=== PATIENT | female | born 1930 | race Caucasian/White ===

== ENCOUNTER 2016-04-04 15:17 | Inpatient (IN) | payer MEDICARE ==
[~2016-04-04] VITALS: Ht 152.4 cm; Wt 48.0 kg
[~2016-04-04 15:17] MED LIST: /ESCI10TA PO; ASPI81TA7 PO; BUME0.5T PO; BUME1TAB13 PO; CIPR500T89 PO; DITR5TAB PO; GLYB5TAB5 PO; POTA20PO4 PO; PRED10TA2 PO; VESI5TAB PO; VITA-121 PO; VITA250L PO; XANA0.5T PO; ZOCO40TA PO
[2016-04-04 17:22] LABS: BASO # 0.1 K/mm3 (0.0-0.2); BASO % 0.9 % (0.0-1.0); EOS # 0.3 K/mm3 (0.0-0.50); LARGE UNSTAINED CELL # 0.1 K/mm3 (0.0-0.4); LARGE UNSTAINED CELL % 1.7 % (0.0-4.0); LYMPH # 0.6 K/mm3 (1.5-4.5); MEAN CORPUSCULAR HEMOGLOBIN 32.7 pg (27.0-33.0); MEAN CORPUSCULAR HGB CONC 34.2 g/dl (32.0-36.5); MEAN CORPUSCULAR VOLUME 95.5 fl (80.0-96.0); MONO # 0.4 K/mm3 (0.0-0.8); MONO % 6.4 % (0.0-5.0); NEUTROPHILS # 4.8 K/mm3 (1.8-7.7); NEUTROPHILS % 75.9 % (36.0-66.0); PLATELET COUNT, AUTOMATED 276 k/mm3 (150-450); RED CELL DISTRIBUTION WIDTH 13.7 % (11.5-14.5); WHITE BLOOD COUNT 6.3 K/mm3 (4.0-10.0)
[2016-04-04 17:35] LABS: ALBUMIN 3.2 GM/DL (3.2-5.2); ALBUMIN/GLOBULIN RATIO 1.14 (1.00-1.93); ALKALINE PHOSPHATASE 164 U/L (45-117); ALT/SGPT 37 U/L (12-78); ANION GAP 8 MEQ/L (8-16); AST/SGOT 24 U/L (15-37); BILIRUBIN,TOTAL 0.3 MG/DL (0.2-1.0); BLOOD UREA NITROGEN 18 MG/DL (7-18); CALCIUM LEVEL 9.3 MG/DL (8.8-10.2); CARBON DIOXIDE LEVEL 29 MEQ/L (21-32); CHLORIDE LEVEL 108 MEQ/L (98-107); CREATININE FOR GFR 0.93 MG/DL (0.55-1.02); GLOMERULAR FILTRATION RATE > 60.0 (>32); GLUCOSE, FASTING 152 MG/DL (83-110); POTASSIUM SERUM 4.2 MEQ/L (3.5-5.1); SODIUM LEVEL 145 MEQ/L (136-145)
[2016-04-04 17:40] LABS: BILIRUBIN,DIRECT 0.1 MG/DL (0.0-0.2)
--- NOTE | 2016-04-04 18:13 | REP ---
CT brain without contrast 04/04/2016 Indication: Mental status with intermittent right-sided deficits. Comparison: CT brain 10/14/2014 Findings: There is moderate generalized cerebral volume loss. Small to moderate areas of periventricular subcortical white matter hypodensities are consistent with chronic small vessel ischemic disease. There is no intracranial hemorrhage or extra-axial fluid collection. As previously noted there is a calcified right frontal convexity meningioma of approximately 2.5 cm maximal transverse dimension and 1.7 cm AP dimension not significantly changed in size yet with some increased thickening of the inner table of the right frontal skull. Visualized portions of paranasal sinuses and mastoid sinuses are clear. Impression 1. No acute intracranial pathology or hemorrhage 2. Moderate generalized cerebral volume loss with chronic small vessel ischemic disease 3. No significant change within the size of the right frontal convexity meningioma. However there does appear to be some mild increased cortical thickening within the inner table of the right frontal skull. Signed by Aixa Nieves MD 04/04/2016 06:05 P
--- NOTE | 2016-04-04 19:44 | REP ---
AP portable sitting chest radiograph: Indication: Altered mental status, weakness. Comparison: PA and lateral chest 11/15/2013 performed at [facility]. Findings: Cardiac silhouette is mildly enlarged with left ventricular prominence. Dense atherosclerotic changes are noted in the aortic arch and descending thoracic aorta. Small amount of bibasilar atelectatic changes are noted as well as pulmonary venous hypertension. Impression: Mild cardiomegaly with left ventricular enlargement, stable. Dense atherosclerotic changes in the thoracic aorta. Pulmonary venous hypertension and/or fibrotic scarring. Signed by Aixa Nieves MD 04/07/2016 10:45 A
[2016-04-04] MEDS ORDERED: MIRA3350 PO (20:13)
[2016-04-04] MEDS ORDERED: GABA-279 PO (20:13)
[2016-04-04] MEDS ORDERED: LEXA5TAB13 PO (20:13)
[2016-04-04] MEDS ORDERED: ASPI1TAB PO (20:13)
[2016-04-04] MEDS ORDERED: DOCU100C PO (20:13)
[2016-04-04] MEDS ORDERED: CALCTAB68 PO (20:13)
[2016-04-04] MEDS ORDERED: MELA3TAB PO (20:13)
[2016-04-04] MEDS ORDERED: FLON1SPR (20:13)
[2016-04-04] MEDS ORDERED: SALI0.653 (20:16)
[2016-04-04] MEDS ORDERED: MIRT15TA3 PO (20:16)
[2016-04-04] MEDS ORDERED: MUPI2OI TOP (20:16)
[2016-04-04] MEDS ORDERED: OLAN5TAB PO (20:16)
[2016-04-04] MEDS ORDERED: LORA10TA2 PO (20:16)
[2016-04-04] MEDS ORDERED: VITMTA PO (20:18)
[2016-04-04] MEDS ORDERED: MEDI1GEL5 TOP (20:18)
[2016-04-04] MEDS ORDERED: MUPIROCIN 2% OINT 22 GM TUBE TOP PRN (20:30)
[2016-04-04] MEDS ORDERED: DOCUSATE SODIUM 100 MG CAP PO PRN (20:30)
--- NOTE | 2016-04-04 22:05 | HPE ---
DATE OF ADMISSION: 04/04/2016 PRIMARY CARE PROVIDER: Dr. Makayla Luna CHIEF COMPLAINT: Progressive weakness and confusion. HISTORY OF THE PRESENT ILLNESS: Ms. Shahid is an 86-year-old female with a history of temporal arteritis, reportedly has been off prednisone 3 months ago, who presented to the emergency department (ED) tonight with her family with complaint of progressive weakness and confusion. The patient is somewhat a poor historian and history was obtained mostly from her niece. The time frame of her prednisone cessation and onset of confusion is somewhat unclear. Per niece, the patient in the last 2 months has had worsening weakness. Previously, she was using a walker but was noticed to have preference more leaning to her right side with walking. She is now weak to the point that needs to use wheelchair. Per niece, the patient has intermittent episodes where she is able to carry on a normal conversation and able to tell the year; however, this has been fluctuating in the last 2 months. Because of concern that her symptoms were secondary to steroids, her primary care provider (PCP) had stopped her prednisone 3 months earlier. No reported headaches, nausea, fevers, chills, new rashes. Mirtazapine was started approximately a month ago to help increase her appetite. No changes to other medications. In the ED, her systolic blood pressure initially was 95 but did improve to systolic 154. 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 Temporal arteritis. Diverticulitis. Dysphagia, on honey-thickened liquids. Frontal hemangioma. Hemorrhoids. Grade 1 diastolic heart failure, ejection fraction (EF) was 60-65% from 2012 echo. 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 PAST SURGICAL HISTORY: Hysterectomy. Cataract surgery, bilateral. Colonoscopy. ALLERGIES: AMOXICILLIN - rash. CIPRO - rash. PENICILLIN - rash. BEE STINGS. HOME MEDICATIONS: - aspirin 81 mg by mouth daily - calcium 600 mg one tablet by mouth daily - Colace 100 mg by mouth twice a day - Lexapro 5 mg by mouth daily - Flonase two sprays daily - gabapentin 100 mg nightly; the patient takes two tablets nightly if increased pain - loratadine 10 mg by mouth daily - Medihoney Wound topical twice a day to sores - melatonin 3 mg nightly - mirtazapine 15 mg nightly - multivitamin - mupirocin 2% ointment as needed to rash - olanzapine 5 mg nightly - MiraLAX 17 grams by mouth daily - nasal saline spray nightly SOCIAL HISTORY: The patient is an ex-smoker, used to smoke for 30 pack years. No alcohol or drug use. Currently lives at home with her niece and her niece's . No pets. 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 Son, Esthela Shahid, is health care proxy, phone number [phone] or . FAMILY HISTORY: Noncontributory due to advanced age. REVIEW OF SYSTEMS: CONSTITUTIONAL: Positive for 11 pound weight loss due to poor appetite. No fever , chills or night sweats. HEENT: Denies headaches, lightheadedness, dizziness, difficulty with speech and swallow. Positive for right eye blindness as mentioned above. CARDIOVASCULAR: Denies chest pain, paroxysmal nocturnal dyspnea, pillow orthopnea, lower extremity edema. PULMONARY: Denies shortness of breath, productive cough, hemoptysis. GASTROINTESTINAL: Denies hematochezia, melena, or hematemesis, nausea, vomiting, diarrhea, constipation. GENITOURINARY: No dysuria, frequency or hematuria. MUSCULOSKELETAL: No bone, muscle, joint pain. NEUROLOGICAL: Positive for right-sided weakness and confusion as above. ENDOCRINE: Previously had steroid induced diabetes. No thyroid disease. LYMPHATICS: No lumps, bumps, or swelling anywhere in neck, axilla, or groin. HEMATOLOGY: No abnormal bleeding or bruising. PSYCHIATRIC: Positive for history of depression and decreased appetite. PHYSICAL EXAMINATION: VITAL SIGNS: Blood pressure initially 95 systolic but increased to 154/70, heart rate 62, respiratory rate 18, temperature 96.3, pulse oximetry 97% on room air. Body mass index (BMI) 25. GENERAL: Patient is lying in bed, approximately 45 degree angle, comfortable, in no acute distress, thin, chronically ill appearing. Niece and son at bedside. She is alert, awake, oriented to person, place but thinks that the year is 2005 but knows she is 86 years old. HEENT: Normocephalic, atraumatic, moist oral mucosa, upper denture in place. Extraocular movements intact. Pupils equal and reactive to light. No facial weakness. NECK: Supple. Trachea midline. CHEST: Symmetric chest rise, no accessory muscle use. Breath sounds are clear to auscultation bilaterally. HEART: Regular rate and rhythm, S1, S2 present. ABDOMEN: Soft, mildly tender to palpation left lower quadrant. No guarding, no rebound, no peritoneal sign. EXTREMITIES: No pedal edema. Pedal pulses present bilaterally. MUSCULOSKELETAL: She has extreme kyphosis. Back with dressing in place with tearing of skin. This is currently being dressed with Medihoney. Her sacral region is also being dressed due to skin tear secondary to chronic steroid use. NEUROLOGIC: Mentation as above. Sensory is intact. Strength is 4 out of 5 in all extremities. Delayed [id number]. PSYCHIATRIC: Pleasant, cooperative. LABORATORY DATA: WBC is 6.3, hemoglobin 13, hematocrit 37.9, platelets 276, neutrophils 75.9, ESR normal. Sodium 145, potassium 4.2, chloride 109, carbon dioxide 29, BUN 18, creatinine 0.92, glucose 152, calcium 9.3, total bilirubin 0.3, direct bilirubin 0.1, AST 24, ALT 37, alkaline phosphatase 164, CK 32, troponin negative, TSH 1.82, CRP 0.67, total protein 6, albumin 3.2. Blood culture is pending. Urine culture is pending. CT head reports no acute intracranial pathology or hemorrhage. No significant change in the size of right frontal convexity meningioma. There appears to be some increased cortical thickening within the inner table of the right frontal skull. Moderate generalized cerebral volume loss with chronic ischemic disease. Chest x-ray reports mild cardiomegaly with left ventricular enlargement, dense atherosclerotic changes in thoracic aorta. Pulmonary venous hypertension and/or fibrotic scarring IMPRESSION AND PLAN: Ms. Shahid is an 86-year-old with past medical history of temporal arteritis, brought in for progressive weakness and confusion. 1. Weakness and intermittent confusion. Etiology unclear. Possible causes include prednisone induced, transient ischemic attack (TIA), cerebrovascular accident, dementia, infection or other. While there is reported history of right sided weakness, did not appreciate this during examination tonight. The patient will be admitted to telemetry for close monitoring. The patient could not have MRI performed due to her severe kyphotic back. Will order repeat CT in the morning. Check echo, carotid ultrasound. Neurology consult. Aspiration precautions. Neurologic checks. . 2. History of temporal arteritis. Previously on prednisone for more than 4 years. Dose was reportedly tapered off 3 months ago due to concerning that it was contributing to her confusion. 3. Prednisone induced diabetes. This is reportedly resolved since she has been off prednisone. 4. Chronic back pain. Continue home dose of gabapentin; however, monitor her mental status while she is on medication. 5. History of diastolic heart failure. Compensated. Reportedly has not been on diuretics for a long time. 6. Depression. Continue home dose Lexapro, Zyprexa. Mirtazapine 50 mg by mouth daily. 7. Deep vein thrombosis (DVT) prophylaxis. Sequential compression devices (SCDs) , thromboembolism deterrents (TEDs) and heparin. DISPOSITION: Due to patient's acute condition, we expect her stay to be greater than two midnights. My preceptor for this patient encounter was Dr. Nelson. The preceptor was physically present in the building during the encounter and was fully available. As needed, all aspects of the patient interview, examination, medical decision making process, and medical care plan development were reviewed and approved by the preceptor. The preceptor is aware and concurs with the plan as stated in the body of this note and will attest to such by his/her cosignature. MAGALI
--- NOTE | 2016-04-04 22:37 | EDDOCDS ---
Physician Documentation [facility] Name: Alisha Shahid Age: 86 yrs Sex: Female : 1930 Arrival Date: 04/04/2016 Time: 15:17 Bed 5 Private MD: Makayla Luna E Disposition: 04/04 19:46 Critical Care: Critical care not applicable. hortensia Disposition: 04/04/16 19:46 Hospitalization ordered by Hector Nelson for Observation. Preliminary diagnosis is Other transient cerebral ischemic attacks and related syndromes - possible, needs further evaluation. - Bed requested for PCU. - Status is Observation. js15 - Condition is Stable. - Problem is an ongoing problem. - Symptoms are unchanged. Historical: - Allergies: Amoxicillin (Rash); Cipro PO (Rash); PENICILLINS (Hives, Rash); Bees; - Home Meds: 1. aspirin 81 mg Oral tab 1 tab once daily 2. Calcium + Vitamin D 600 mg calcium- 200 unit Oral tab 2 tab daily 3. Miralax 17 gram/dose Oral powd once daily 4. fluticasone 50 mcg/actuation nasal spsn 2 sprays once daily 5. Lexapro 5 mg Oral tab 1 tab once daily 6. Doc-Q-Lace 100 mg oral cap 1 cap 2 times per day 7. melatonin 3 mg Oral tab nightly 8. gabapentin 100 mg Oral cap daily 9. Zyprexa 5 mg Oral tab 1 tab nightly 10. mirtazapine 15 mg Oral TbDL 1 tab once daily - PMHx: CHF; Diabetes - NIDDM: controlled; temporal arteritis; - PSHx: Hysterectomy; Cataract Surgery- Bilateral; - Social history: Smoking status: Patient states former smoker of tobacco. No barriers to communication noted, The patient speaks fluent Swiss. - Family history: Not pertinent. - : The pt / caregiver states he / she is not on anticoagulants. Home medication list is obtained from the patient. - Exposure Risk Screening:: None identified. Vital Signs: 15:18 BP 95 / 54; Pulse 77; Resp 18 S; Temp 96.3; Pulse Ox 97% on R/A; Weight 58.97 kg / dd6 130.01 lbs (R); Height 5 ft. 0 in. (152.40 cm) (R); 16:00 Pulse 64 MON; Pulse Ox 95% ; srm 16:00 BP 118 / 58 (auto/); srm 16:10 BP 115 / 52 (auto/); srm 16:10 Pulse 58 MON; Resp 18; Pulse Ox 96% ; srm 16:40 Pulse 62 MON; Pulse Ox 93% ; srm 16:40 BP 131 / 62 (auto/); srm 17:10 Pulse 58 MON; Pulse Ox 96% ; srm 17:10 BP 162 / 70 (auto/); srm 17:53 BP 154 / 70 (auto/); srm 17:53 Pulse 62 MON; Resp 18; Pulse Ox 97% ; srm 18:40 BP 165 / 72 (auto/); js15 18:40 Pulse 50 MON; Pulse Ox 97% ; js15 19:06 Pulse 52 MON; Pulse Ox 96% ; js15 21:15 BP 130 / 65; Pulse 63; Resp 18; Temp 98.2; Pulse Ox 94% ; Pain 0/10; js15 15:18 Body Mass Index 25.39 (58.97 kg, 152.40 cm) dd6 MDM: 16:56 Mail Sorter And Delivery/Pulse Ox/q 15 min VS ordered. le 16:56 Accucheck ordered. le 16:57 IV Saline Lock ordered. le 16:57 Oxygen at 4L/Min NC or Home dosage ordered. le 16:57 Rhythm Strip to chart ordered. le 16:57 -Blood Culture (Adults Only), peripheral from different site, or from device/port/PICC le etc. if present ordered. 16:58 CBC with Diff Ordered. EDMS 16:58 Cardiac Injury Profile Ordered. EDMS 16:58 Liver Profile Ordered. EDMS 16:58 MED Profile Ordered. EDMS 16:58 Thyroid Stimulating Hormone Ordered. EDMS 16:58 Troponin Ordered. EDMS 16:58 Urinalysis Ordered. EDMS 16:58 Urine Culture Ordered. EDMS 16:58 -Blood Culture Ordered. EDMS 16:58 CT Head Without Contrast Ordered. EDMS 16:58 ECG WITH READING ER PHYS+CARDIAG ordered. EDMS 16:59 Chest, 2 View (pa\E\lat) Ordered. EDMS 17:02 Financial registration complete. zo 17:04 [facility] [place] was scanned into [employer] and attached to record. zo 17:18 -Blood Culture (Adults Only), peripheral from different site, or from device/port/PICC lbd etc. if present complete. 17:21 BLOOD CULTURES Ordered. EDMS 17:28 ESR Ordered. EDMS 17:30 C REACTIVE PROTEIN QUANTITATIV Ordered. EDMS 17:43 Fingerstick Blood Sugar Ordered. EDMS 18:22 CBC with Diff Reviewed. le 18:22 Liver Profile Reviewed. le 18:22 MED Profile Reviewed. le 18:22 Urinalysis Reviewed. le 18:22 C REACTIVE PROTEIN QUANTITATIV Reviewed. le 18:22 Fingerstick Blood Sugar Reviewed. le 18:22 Cardiac Injury Profile Reviewed. le 18:22 Thyroid Stimulating Hormone Reviewed. le 18:22 Troponin Reviewed. le 18:22 ESR Reviewed. le 18:22 CT Head Without Contrast Reviewed. le 18:29 MRI Screening Tool - Place on chart, inform RN ordered. le 18:42 MRI Screening Tool - Place on chart, inform RN complete. lbd 19:36 BED REQUEST+ADM ordered. EDMS 20:25 2 GRAM SODIUM DIET ordered. EDMS 20:25 COMPLETE BLOOD COUNT Ordered. EDMS 20:25 BASIC METABOLIC PROFILE Ordered. EDMS 20:51 Admission / Observation Status ordered. EDMS 20:58 Duplex,carotid (complete) Ordered. EDMS 20:59 ECHOCARD,DOPPLER/COLOR FLOW ordered. EDMS 20:59 CT Head without contrast Ordered. EDMS Point of Care Testing: Blood Glucose: 17:31 Blood Glucose: 140 mg/dL; srm Ranges: Signatures: Dispatcher [employer] Shavon Archibald, Chemotherapist Unit lbd Iveth Pedroza RN MORENO srm Marissa, Rj, Chemotherapist Unit ml3 Katarzyna Klein Lisa, FOUNDER CHAIRMAN AND CHIEF CREATIVE OFFICER FOUNDER CHAIRMAN AND CHIEF CREATIVE OFFICER Blanka Carbone RN RN rs3 Savanah Marcano,RN RN js15 The chart was reviewed and I authenticate all verbal orders and agree with the evaluation and treatment provided.Corrections: (The following items were deleted from the chart) 17:31 17:28 C REACTIVE PROTEIN QUANTITATIV+LAB ordered. EDMS EDMS 19:28 18:30 MRA-Brain without contrast+MR ordered. EDMS EDMS 19:28 18:31 MRI-Brain without+MR ordered. EDMS EDMS Attachments: 17:04 [facility] [place] zo MTDD
--- NOTE | 2016-04-04 22:38 | EDDOCDS ---
Nurse's Notes [facility] Name: Alisha Shahid Age: 86 yrs Sex: Female : 1930 Arrival Date: 04/04/2016 Time: 15:17 Bed 5 Private MD: Makayla Luna E Diagnosis: Other transient cerebral ischemic attacks and related syndromes-possible, needs further evaluation Presentation: 04/04 15:23 Presenting complaint: Niece states patient is getting progressively weak,confused for a rs3 week. The last date and time the patient was known to be well was was at an unknown time on an unknown date. No acute neurological deficit is noted. Pre-hospital glucose is not applicable to this patient. Adult Sepsis Screening: The patient does not have new or worsening altered mentation. Patient's respiratory rate is less than 22. Systolic blood pressure is greater than 100. Patient has a qSOFA score of 0- Negative Sepsis Screen. Suicide/Homicide risk assessment- the patient denies having any suicidal and/or homicidal ideations and does not present with any other emotional, behavioral or mental health complaints. Status: Patient is not a enrollment services dean or dependent. Transition of care: patient was not received from another setting of care. 15:23 Acuity: STEVEN Level 3 rs3 15:23 Method Of Arrival: Wheelchair rs3 Triage Assessment: 15:27 The onset of the patients symptoms was at an unknown time. General: Appears in no rs3 apparent distress. Pain: Denies pain. Neurological: Level of Consciousness is awake, alert, Reports weakness. Historical: - Allergies: Amoxicillin (Rash); Cipro PO (Rash); PENICILLINS (Hives, Rash); Bees; - Home Meds: 1. aspirin 81 mg Oral tab 1 tab once daily 2. Calcium + Vitamin D 600 mg calcium- 200 unit Oral tab 2 tab daily 3. Miralax 17 gram/dose Oral powd once daily 4. fluticasone 50 mcg/actuation nasal spsn 2 sprays once daily 5. Lexapro 5 mg Oral tab 1 tab once daily 6. Doc-Q-Lace 100 mg oral cap 1 cap 2 times per day 7. melatonin 3 mg Oral tab nightly 8. gabapentin 100 mg Oral cap daily 9. Zyprexa 5 mg Oral tab 1 tab nightly 10. mirtazapine 15 mg Oral TbDL 1 tab once daily - PMHx: CHF; Diabetes - NIDDM: controlled; temporal arteritis; - PSHx: Hysterectomy; Cataract Surgery- Bilateral; - Social history: Smoking status: Patient states former smoker of tobacco. No barriers to communication noted, The patient speaks fluent Chinese. - Family history: Not pertinent. - : The pt / caregiver states he / she is not on anticoagulants. Home medication list is obtained from the patient. - Exposure Risk Screening:: None identified. Screenin:03 Screening information is obtained from the patient, the caregiver. Fall risk: At risk srm due to age, gait disturbance, The following interventions are performed due to a positive Fall Risk Screen: Fall Risk is added to Special Handling on the patient Summary Screen. A Fall Risk Bracelet was applied to the patient. Side Rails are placed in the up position. A Call Davis is given with instruction to call for help when getting out of bed. Fall Alert bracelet is placed on the patient. home support is adequate. 22:19 Assistance ADL's: Requires assistance with meal preparation, this assistance is js15 provided by family members, bathing, assistance is provided by family members, dressing, assistance is provided by family members, toileting, assistance is provided by family members, medication administration, assistance is provided by family members. Abuse/DV Screen: The patient / caregiver reports he/she is: not in a situation that causes fear, pain or injury. Nutritional screening: No deficits noted. 22:22 Advance Directives: Currently, there is a health care proxy, Son- Esthela Shahid. js15 Assessment: 16:02 General: Appears in no apparent distress, Behavior is appropriate for age, cooperative. srm Neurological: Level of Consciousness is awake, alert, Oriented to person, place, Speech is normal, Facial symmetry appears normal. Respiratory: Airway is patent Respiratory effort is even, unlabored, Breath sounds are clear bilaterally. GI: Abdomen is non- distended Bowel sounds present X 4 quads. Abd is soft and non tender X 4 quads. Derm: No deficits noted. 17:31 General: Appears in no apparent distress, Behavior is appropriate for age, cooperative. srm Neurological: Level of Consciousness is awake, alert, Oriented to person, place. Cardiovascular: Rhythm is sinus rhythm. Respiratory: No deficits noted. GI: No deficits noted. 19:09 General: Appears in no apparent distress, Behavior is appropriate for age, cooperative. srm Neurological: Level of Consciousness is awake, alert, Oriented to person, place, Speech is normal, Facial symmetry appears normal. Cardiovascular: No deficits noted. Respiratory: No deficits noted. GI: No deficits noted. 20:30 General: Appears in no apparent distress, Behavior is appropriate for age, cooperative. js15 Pain: Denies pain. Neurological: Level of Consciousness is awake, alert, obeys commands, Oriented to person, place. Respiratory: Airway is patent Respiratory effort is even, unlabored, Respiratory pattern is regular, symmetrical. Derm: Skin is pink, warm & dry. 21:45 Reassessment: Patient appears in no apparent distress at this time. Pt sitting up, js15 awake and alert; eating diet tray with family at bedside; respirations even and unlabored; skin pink, warm, dry. Vital Signs: 15:18 BP 95 / 54; Pulse 77; Resp 18 S; Temp 96.3; Pulse Ox 97% on R/A; Weight 58.97 kg (R); dd6 Height 5 ft. 0 in. (152.40 cm) (R); 16:00 Pulse 64 MON; Pulse Ox 95% ; srm 16:00 BP 118 / 58 (auto/); srm 16:10 BP 115 / 52 (auto/); srm 16:10 Pulse 58 MON; Resp 18; Pulse Ox 96% ; srm 16:40 Pulse 62 MON; Pulse Ox 93% ; srm 16:40 BP 131 / 62 (auto/); srm 17:10 Pulse 58 MON; Pulse Ox 96% ; srm 17:10 BP 162 / 70 (auto/); srm 17:53 BP 154 / 70 (auto/); srm 17:53 Pulse 62 MON; Resp 18; Pulse Ox 97% ; srm 18:40 BP 165 / 72 (auto/); js15 18:40 Pulse 50 MON; Pulse Ox 97% ; js15 19:06 Pulse 52 MON; Pulse Ox 96% ; js15 21:15 BP 130 / 65; Pulse 63; Resp 18; Temp 98.2; Pulse Ox 94% ; Pain 0/10; js15 15:18 Body Mass Index 25.39 (58.97 kg, 152.40 cm) dd6 Vitals: 15:18 Log In Time: April 04, 2016 at 15:16. dd6 15:19 RN notified that patient meets Red Flag criteria. dd6 ED Course: 15:18 Patient visited by Terrance Delvalle PCA. dd6 15:18 Makayla Luna is Private Physician. dd6 15:18 Patient moved to Waiting dd6 15:23 Triage Initiated rs3 15:27 Patient moved to 5 rs3 15:42 [facility] le 16:02 The patient / caregiver is instructed regarding the plan of care and ED course. srm Accompanied by Family Member, Patient has correct armband on for positive identification. Placed in gown. monitoring engineer on. Pulse ox on. NIBP on. 16:02 Inserted saline lock: 20 gauge in right antecubital area and blood collected. The [facility] patient tolerated the procedure well. 16:02 Missed attempts: 20 gauge in left wrist. srm 16:04 Patient visited by Iveth Pedroza RN. srm 16:16 Patient visited by Dariana Judge FNP. le 16:16 Patient visited by Dariana Judge FNP. le 17:00 CBC with Diff Sent. srm 17:00 Cardiac Injury Profile Sent. srm 17:00 Liver Profile Sent. srm 17:00 MED Profile Sent. srm 17:00 Thyroid Stimulating Hormone Sent. srm 17:00 Troponin Sent. srm 17:04 [facility] [place] Payment Agreement was scanned into [employer] and attached to record. zo 17:15 Urine collected. straight cath specimen. srm 17:16 Patient visited by Iveth Pedroza RN. srm 17:29 BLOOD CULTURES Sent. srm 17:30 C REACTIVE PROTEIN QUANTITATIV Sent. srm 17:30 ESR Sent. srm 17:31 Patient visited by Iveth Pedroza RN. srm 17:58 Patient visited by Iveth Pedroza RN. srm 18:21 CT Head Without Contrast Returned. EDMS 18:27 EKG done. (by ED staff). Reviewed by Dariana ARELLANO. rn1 19:09 Patient visited by Iveth Pedroza RN. srm 19:46 Hector Nelson MD is Hospitalizing Provider. le 20:20 Chest, 2 View (pa\E\lat) Returned. EDMS 22:19 No procedures done that require assistance. js15 Point of Care Testing: Blood Glucose: 17:31 Blood Glucose: 140 mg/dL; srm Ranges: Order Results: Lab Order: CBC with Diff; SPEC'M 04/04/16 16:00 Test: WHITE BLOOD COUNT; Value: 6.3; Range: 4.0-10.0; Units: K/mm3; Status: F Test: RED BLOOD COUNT; Value: 3.97; Range: 4.00-5.40; Abnormal: Below low normal; Units: M/mm3; Status: F Test: HEMOGLOBIN; Value: 13.0; Range: 12.0-16.0; Units: g/dl; Status: F Test: HEMATOCRIT; Value: 37.9; Range: 36.0-47.0; Units: %; Status: F Test: MEAN CORPUSCULAR VOLUME; Value: 95.5; Range: 80.0-96.0; Units: fl; Status: F Test: MEAN CORPUSCULAR HEMOGLOBIN; Value: 32.7; Range: 27.0-33.0; Units: pg; Status: F Test: MEAN CORPUSCULAR HGB CONC; Value: 34.2; Range: 32.0-36.5; Units: g/dl; Status: F Test: RED CELL DISTRIBUTION WIDTH; Value: 13.7; Range: 11.5-14.5; Units: %; Status: F Test: PLATELET COUNT, AUTOMATED; Value: 276; Range: 150-450; Units: k/mm3; Status: F Test: NEUTROPHILS %; Value: 75.9; Range: 36.0-66.0; Abnormal: Above high normal; Units: %; Status: F Test: LYMPH %; Value: 10.0; Range: 24.0-44.0; Abnormal: Below low normal; Units: %; Status: F Test: MONO %; Value: 6.4; Range: 0.0-5.0; Abnormal: Above high normal; Units: %; Status: F Test: EOS %; Value: 5.0; Range: 0.0-3.0; Abnormal: Above high normal; Units: %; Status: F Test: BASO %; Value: 0.9; Range: 0.0-1.0; Units: %; Status: F Test: LARGE UNSTAINED CELL %; Value: 1.7; Range: 0.0-4.0; Units: %; Status: F Test: NEUTROPHILS #; Value: 4.8; Range: 1.8-7.7; Units: K/mm3; Status: F Test: LYMPH #; Value: 0.6; Range: 1.5-4.5; Abnormal: Below low normal; Units: K/mm3; Status: F Test: MONO #; Value: 0.4; Range: 0.0-0.8; Units: K/mm3; Status: F Test: EOS #; Value: 0.3; Range: 0.0-0.50; Units: K/mm3; Status: F Test: BASO #; Value: 0.1; Range: 0.0-0.2; Units: K/mm3; Status: F Test: LARGE UNSTAINED CELL #; Value: 0.1; Range: 0.0-0.4; Units: K/mm3; Status: F Lab Order: Cardiac Injury Profile; SPEC'M 04/04/16 16:00 Test: CPK CREATINE PHOSPHOKINASE; Value: 32; Range: 26-192; Units: U/L; Status: F Test: CK-MB VALUE MASS; Value: 1.0; Range: 0.0-3.6; Units: NG/ML; Status: F Test: MB/CK RELATIVE INDEX; Value: 3.12; Range: < OR =4; Status: F Test Note: ; DIAGNOSIS CRITERIA MMB ng/ml Relative Index (RI) NON-AMI < or = 5 N/A [place]ONE > 5 < or = 4 AMI > 5 > 4 Lab Order: Liver Profile; SPEC'M 04/04/16 16:00 Test: AST/SGOT; Value: 24; Range: 15-37; Units: U/L; Status: F Test: ALT/SGPT; Value: 37; Range: 12-78; Units: U/L; Status: F Test: ALKALINE PHOSPHATASE; Value: 164; Range: 45-117; Abnormal: Above high normal; Units: U/L; Status: F Test: BILIRUBIN,TOTAL; Value: 0.3; Range: 0.2-1.0; Units: MG/DL; Status: F Test: BILIRUBIN,DIRECT; Value: 0.1; Range: 0.0-0.2; Units: MG/DL; Status: F Test: TOTAL PROTEIN; Value: 6.0; Range: 6.4-8.2; Abnormal: Below low normal; Units: GM/DL; Status: F Test: ALBUMIN; Value: 3.2; Range: 3.2-5.2; Units: GM/DL; Status: F Test: ALBUMIN/GLOBULIN RATIO; Value: 1.14; Range: 1.00-1.93; Status: F Lab Order: MED Profile; SPEC'04/04/16 16:00 Test: GLUCOSE, FASTING; Value: 152; Range: 83-110; Abnormal: Above high normal; Units: MG/DL; Status: F Test: BLOOD UREA NITROGEN; Value: 18; Range: 7-18; Units: MG/DL; Status: F Test: CREATININE FOR GFR; Value: 0.93; Range: 0.55-1.02; Units: MG/DL; Status: F Test: GLOMERULAR FILTRATION RATE; Value: > 60.0; Range: >32; Status: F Test: SODIUM LEVEL; Value: 145; Range: 136-145; Units: MEQ/L; Status: F Test: POTASSIUM SERUM; Value: 4.2; Range: 3.5-5.1; Units: MEQ/L; Status: F Test: CHLORIDE LEVEL; Value: 108; Range: 98-107; Abnormal: Above high normal; Units: MEQ/L; Status: F Test: CARBON DIOXIDE LEVEL; Value: 29; Range: 21-32; Units: MEQ/L; Status: F Test: ANION GAP; Value: 8; Range: 8-16; Units: MEQ/L; Status: F Test: CALCIUM LEVEL; Value: 9.3; Range: 8.8-10.2; Units: MG/DL; Status: F Test Note: ; Units are mL/min/1.73 m2 Chronic Kidney Disease Staging per NKF: Stage I & II GFR >=60 Normal to Mildly Decreased Stage III GFR 30-59 Moderately Decreased Stage IV GFR 15-29 Severely Decreased Stage V GFR <15 Very Little GFR Left ESRD GFR <15 on DEPLOYMENT MANAGER Lab Order: Thyroid Stimulating Hormone; SPEC'M 04/04/16 16:00 Test: THYROID STIMULATING HORMONE; Value: 1.820; Range: 0.358-3.740; Units: uIU/ML; Status: F Lab Order: Troponin; SPEC'04/04/16 16:00 Test: TROPONIN I; Value: < 0.02; Range: < 0.10; Units: NG/ML; Status: F Test Note: ; Troponin I Reference Interval for [employer] [place] LOCI: 99th Percentile= 0.00-0.045 ng/ml Risk Stratification: <= 0.10 ng/ml Decreased Risk for Adverse Clinical Events. 0.10-1.50 ng/ml Increased Risk for Adverse Clinical Events. Evaluation of additional criterion and/or repeat testing in 2-6 hours is suggested to rule out myocardial damage. >= 1.50 ng/ml Indicative of Myocardial Injury. Lab Order: Urinalysis; SPEC'M 04/04/16 17:16 Test: APPEARANCE, URINE; Value: CLOUDY; Range: CLEAR; Abnormal: Above high normal; Status: F Test: COLOR, URINE; Value: MARIA C; Range: YELLOW; Status: F Test: PH,URINE; Value: 5.0; Range: 5.0-9.0; Units: UNITS; Status: F Test: SPECIFIC GRAVITY URINE AUTO; Value: 1.023; Range: 1.002-1.035; Status: F Test: PROTEIN, URINE AUTO; Value: NEGATIVE; Range: NEGATIVE; Units: mg/dL; Status: F Test: GLUCOSE, URINE (UA) AUTO; Value: NEGATIVE; Range: NEGATIVE; Units: mg/dL; Status: F Test: KETONE, URINE AUTO; Value: NEGATIVE; Range: NEGATIVE; Units: mg/dL; Status: F Test: UROBILINOGEN, URINE AUTO; Value: 2.0; Range: 0.0-2.0; Abnormal: Above high normal; Units: mg/dL; Status: F Test: BILIRUBIN, URINE AUTO; Value: NEGATIVE; Range: NEGATIVE; Status: F Test: NITRITE, URINE AUTO; Value: NEGATIVE; Range: NEGATIVE; Status: F Test: LEUKOCYTE ESTERASE, URINE AUTO; Value: NEGATIVE; Range: NEGATIVE; Status: F Test: BLOOD, URINE BLOOD; Value: 1+; Range: NEGATIVE; Abnormal: Above high normal; Status: F Test: WBC, URINE AUTO; Value: 4; Range: 0-3; Abnormal: Above high normal; Units: /HPF; Status: F Test: RBC, URINE AUTO; Value: 6; Range: 0-3; Abnormal: Above high normal; Units: /HPF; Status: F Test: BACTERIA, URINE AUTO; Value: NEGATIVE; Range: NEGATIVE; Status: F Test: SQUAMOUS EPITHELIAL CELL UR AU; Value: 9; Range: 0-6; Units: /HPF; Status: F Test: MUCUS, URINE; Value: SMALL; Range: NEGATIVE; Status: F Test: HYALINE CAST, URINE AUTO; Value: 4; Range: 0-1; Units: /LPF; Status: F Lab Order: ESR; [facility] 04/04/16 16:00 Test: ERYTHROCYTE SEDIMENTATION RATE; Value: 22; Range: 0-42; Units: mm/hr; Status: F Lab Order: C REACTIVE PROTEIN QUANTITATIV; [facility] 04/04/16 16:00 Test: C REACTIVE PROTEIN QUANTITATIV; Value: 0.67; Range: 0.00-0.30; Abnormal: Above high normal; Units: MG/DL; Status: F Lab Order: Fingerstick Blood Sugar; [facility] 04/04/16 17:25 Test: BEDSIDE GLUCOSE; Value: 140; Range: 83-110; Abnormal: Above high normal; Units: MG/DL; Status: F Radiology Order: CT Head Without Contrast Test: CT Head Without Contrast REASON FOR EXAMINATION: altered mental status with intermittent right sided deficits; CT brain without contrast 04/04/2016; ; Indication: Mental status with intermittent right-sided deficits.; ; Comparison: CT brain 10/14/2014; ; Findings: There is moderate generalized cerebral volume loss. Small to moderate; areas of periventricular subcortical white matter hypodensities are consistent; with chronic small vessel ischemic disease. There is no intracranial hemorrhage; or extra-axial fluid collection. As previously noted there is a calcified right; frontal convexity meningioma of approximately 2.5 cm maximal transverse dimension; and 1.7 cm AP dimension not significantly changed in size yet with some increased; thickening of the inner table of the right frontal skull.; ; Visualized portions of paranasal sinuses and mastoid sinuses are clear.; ; Impression; 1. No acute intracranial pathology or hemorrhage; 2. Moderate generalized cerebral volume loss with chronic small vessel ischemic; disease; 3. No significant change within the size of the right frontal convexity; meningioma. However there does appear to be some mild increased cortical; thickening within the inner table of the right frontal skull.; ; ; Signed by; Aixa Nieves MD 04/04/2016 06:05 P; Radiology Order: Chest, 2 View (pa\E\lat) Test: Chest, 2 View (pa\E\lat) REASON FOR EXAMINATION: altered mental status/weaknes; AP portable sitting chest radiograph:; ; Indication: Altered mental status, weakness.; ; Comparison: PA and lateral chest 11/15/2013 performed at [facility].; ; Findings: Cardiac silhouette is mildly enlarged with left ventricular; prominence. Dense atherosclerotic changes are noted in the aortic arch and; descending thoracic aorta. Small amount of bibasilar atelectatic changes are; noted as well as pulmonary venous hypertension.; ; Impression:; Mild cardiomegaly with left ventricular enlargement, stable.; ; Dense atherosclerotic changes in the thoracic aorta.; ; Pulmonary venous hypertension and/or fibrotic scarring.; ; ; ; ; Unreviewed; Outcome: 19:46 Decision to Hospitalize by Provider. le 22:19 Discharge Assessment: Patient awake, alert and oriented x 3. No cognitive and/or js15 functional deficits noted. Patient verbalized understanding of disposition instructions. patient administered narcotics - no. The following High Risk Discharge criteria are identified: None. Admitted to PCU accompanied by nurse, accompanied by tech, family with patient, via stretcher, on monitor, with chart. Condition: unchanged. CT Study completed. MRI Study completed. Property :Personal belongings accompany Pt. 22:36 Patient left the ED. js15 Signatures: Dispatcher [employer] EDIveth Holliday RN RN [facility] Katarzyna Klein Lisa, GRIZZLY WORKER GRIZZLY WORKER Terrance De Oliveira, SALBADOR WRAPPING CHECKER dd6 Blanka Stock RN RN rs3 Savanah Marcano RN RN js15 Kun Stringer rn1 Corrections: (The following items were deleted from the chart) 17:31 17:30 C REACTIVE PROTEIN QUANTITATIV+LAB sent. [facility]en [facility]
[2016-04-04 22:51] VITALS: BP 106/52
[2016-04-04] MEDS: MIRTAZAPINE 15 MG TAB PO SCH (23:53)
[2016-04-04] MEDS: SODIUM CHLORIDE NASAL 0.65% SPRAY BTL (OCEAN) SCH (23:53)
[2016-04-04] MEDS: OLANZapine 5 MG TAB PO SCH (23:53)
[2016-04-04] MEDS: GABAPENTIN 100 MG CAP PO PRN (23:53)
[2016-04-05 05:18] LABS: MEAN CORPUSCULAR HEMOGLOBIN 31.7 pg (27.0-33.0); MEAN CORPUSCULAR HGB CONC 33.6 g/dl (32.0-36.5); MEAN CORPUSCULAR VOLUME 94.4 fl (80.0-96.0); RED CELL DISTRIBUTION WIDTH 13.4 % (11.5-14.5); WHITE BLOOD COUNT 5.3 K/mm3 (4.0-10.0)
[2016-04-05 05:30] LABS: ANION GAP 7 MEQ/L (8-16); BLOOD UREA NITROGEN 20 MG/DL (7-18); CARBON DIOXIDE LEVEL 29 MEQ/L (21-32); CHLORIDE LEVEL 110 MEQ/L (98-107); CREATININE FOR GFR 0.56 MG/DL (0.55-1.02); GLOMERULAR FILTRATION RATE > 60.0 (>32); GLUCOSE, FASTING 88 MG/DL (83-110); POTASSIUM SERUM 3.5 MEQ/L (3.5-5.1); SODIUM LEVEL 146 MEQ/L (136-145)
[2016-04-05 05:34] VITALS: BP 116/55
[2016-04-05 08:00] VITALS: BP 115/53
--- NOTE | 2016-04-05 08:12 | ECGEPIP ---
Stationary ECG Study [facility] - ED Test Date: 2016-04-04 Pat Name: ISREAL ROBB Department: Room: [place] [address] Gender: F Icu Registered Nurse: rn : 1930 Requested By: PHAN ARELLANO Order Number: [id number] Reading MD: Audrey Bhatti Measurements Intervals [place] Rate: 58 P: 68 MD: 176 QRS: -34 QRSD: 81 T: -5 QT: 368 QTc: 364 Interpretive Statements SINUS BRADYCARDIA MINIMAL VOLTAGE CRITERIA FOR LVH, CONSIDER NORMAL VARIANT INFERIOR MYOCARDIAL INFARCTION, OF INDETERMINATE AGE PRWP NSTTW ABNORMALITY DECREASED 10/14/14 Electronically Signed On 04-05-2016 8:11:54 EST by Audrey Bhatti
[2016-04-05] MEDS: FLUTICASONE PROP 0.05% NASAL SPRAY 16 GM (FLONASE) SCH (08:34)
[2016-04-05] MEDS: ASPIRIN 81 MG ENTERIC TAB PO SCH (08:35)
[2016-04-05] MEDS: HEPARIN SOD (PORCINE) 5000 UNITS/ML VIAL SC SCH ×2 (08:35→21:23)
[2016-04-05] MEDS: LORATADINE 10 MG TAB PO SCH (08:35)
[2016-04-05] MEDS: ESCITALOPRAM OXALATE 5MG TABLET (LEXAPRO) PO SCH (08:35)
--- NOTE | 2016-04-05 11:10 | IPNPDOC ---
Date/Time Seen The patient was seen on 04/05/16 at 11:06. Neurology note. Patient seen and examined at bedtime. Please see full dictated note. Pt has a right frontal meningioma which maybe be causing some compression of her right frontal lobe leading to left leg weakness. While off prednisone it is possible that her weakness has worsened. I would recommend evaluating her cervical and thoracic spine with some weakness in her biceps, as well as lower extremities. She also has positive babinski signs which may also be the patient withdrawing to the stimuli on her feet. She is brisk at the ankles and knees. I have ordered CT Cervical and Thoracic spine. 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 Progress Note SUBJECTIVE: Patient is a -year-old [RACE] [GENDER] with OBJECTIVE: PHYSICAL EXAMINATION: VITAL SIGNS: Please see below. GENERAL: HEENT: CARDIOVASCULAR: . RESPIRATORY: . ABDOMINAL: EXTREMITIES: NEUROLOGICAL: PSYCHOLOGICAL: LABORATORY DATA: Please see below. MICROBIOLOGY: Please see below. IMAGING: Echocardiogram: . DVT prophylaxis ordered?: ASSESSMENT AND PLAN: This is a -year-old [RACE] [GENDER] with . PROBLEMS: 1. 2. 3. DISPOSITION: . VS, I&O, 24H, Fishbone VS, I&O, 24H, Fishbone Vital Signs Date Time Temp Pulse Resp B/P Pulse Ox O2 Delivery O2 Flow Rate FiO2 04/05/16 08:00 Room Air 04/05/16 08:00 96.5 64 18 115/53 93 I&O- Last 24 Hours up to 6 AM 04/05/16 06:00 Intake Total 30 ml Output Total 100 ml Balance -70 ml Laboratory Tests 2 04/04/16 16:00: Aspartate Amino Transf (AST/SGOT) 24, Alanine Aminotransferase (ALT/SGPT) 37, Alkaline Phosphatase 164H, Total Bilirubin 0.3, Direct Bilirubin 0.1, Albumin 3.2, Albumin/Globulin Ratio 1.14, Anion Gap 8, White Blood Count 6.3, Red Blood Count 3.97L, Hemoglobin 13.0, Hematocrit 37.9, Mean Corpuscular Volume 95.5, Mean Corpuscular Hemoglobin 32.7, Mean Corpuscular Hemoglobin Concent 34.2, Red Cell Distribution Width 13.7, Platelet Count 276, Neutrophils (%) (Auto) 75.9H, Lymphocytes (%) (Auto) 10.0L, Monocytes (%) (Auto) 6.4H, Eosinophils (%) (Auto) 5.0H, Basophils (%) (Auto) 0.9, Neutrophils # (Auto) 4.8, Lymphocytes # (Auto) 0.6L, Monocytes # (Auto) 0.4, Eosinophils # (Auto) 0.3, Basophils # (Auto) 0.1, C-Reactive Protein, Quantitative 0.67H, Calcium Level 9.3, Creatine Kinase MB 1.0, Creatine Kinase MB Relative Index 3.12, Erythrocyte Sedimentation Rate 22, Glomerular Filtration Rate > 60.0, Large Unclassified Cells # 0.1, Large Unclassified Cells % 1.7, Thyroid Stimulating Hormone (TSH) 1.820, Total Creatine Kinase 32, Total Protein 6.0L, Troponin I < 0.02 04/04/16 17:16: Urine Amorphous Sediment , Urine Appearance CLOUDYH, Urine Color MARIA C, Urine pH 5.0, Urine Specific [place] 1.023, Urine Protein NEGATIVE, Urine Glucose (UA ) NEGATIVE, Urine Ketones NEGATIVE, Urine Urobilinogen 2.0H, Urine Bilirubin NEGATIVE, Urine Leukocyte Esterase NEGATIVE, Urine Bacteria (Auto) NEGATIVE, Urine Blood 1+H, Urine Calcium Carbonate Cryst(Auto) , Urine Calcium Oxalate Cryst (Auto) , Urine Calcium Phosphate Madalyn (Auto) , Urine Cellular Casts , Urine Cystine Crystals , Urine Granular Casts (Auto) , Urine Hyaline Casts (Auto ) 4, Urine Leucine Crystals , Urine Mucus (Auto) SMALL, Urine Nitrite NEGATIVE, Urine Oval Fat Bodies (Auto) , Urine RBC (Auto) 6H, Urine Renal Epithelial Cells , Urine Sperm (Auto) , Urine Squamous Epithelial Cells 9, Urine Transitional Epithelial Cells , Urine Trichomonas (Auto) , Urine Triple Phosphate Cryst (Auto) , Urine Tyrosine Crystals , Urine Uric Acid Crystals ( Auto) , Urine WBC (Auto) 4H, Urine Waxy Casts (Auto) , Urine Yeast-Like Cells ( Auto) 04/04/16 17:25: Bedside Glucose (Misc Panel) 140H 04/05/16 04:42: Anion Gap 7L, Calcium Level 9.0, Glomerular Filtration Rate > 60.0, Blood Urea Nitrogen 20H, Creatinine 0.56, Sodium Level 146H, Potassium Level 3.5, Chloride Level 110H, Carbon Dioxide Level 29 Laboratory Tests 04/04/16 16:00 Red Blood Count 3.97 L, Mean Corpuscular Volume 95.5, Mean Corpuscular Hemoglobin 32.7, Mean Corpuscular Hemoglobin Concent 34.2, Red Cell Distribution Width 13.7, Neutrophils (%) (Auto) 75.9 H, Lymphocytes (%) (Auto) 10.0 L, Monocytes (%) (Auto) 6.4 H, Eosinophils (%) (Auto) 5.0 H, Basophils (%) (Auto) 0.9, Neutrophils # (Auto) 4.8, Lymphocytes # (Auto) 0.6 L, Monocytes # ( Auto) 0.4, Eosinophils # (Auto) 0.3, Basophils # (Auto) 0.1 04/05/16 04:42 Red Blood Count 3.80 L, Mean Corpuscular Volume 94.4, Mean Corpuscular Hemoglobin 31.7, Mean Corpuscular Hemoglobin Concent 33.6, Red Cell Distribution Width 13.4, Calcium Level 9.0 Microbiology 04/04/16 Blood Culture, Received Pending 04/04/16 Blood Culture, Received Pending 04/04/16 Urine Culture, Received Pending MEGHANA GRIGSBY MD Apr 05, 2016 11:10
--- NOTE | 2016-04-05 11:29 | REP ---
Duplex carotid sonography: History: TIA. Comparison sonography is from April 28, 2014. Mammographic findings: Scanning demonstrates antegrade flow in both vertebral arteries. Right carotid: The right common carotid artery shows mild mixed plaquing. There is mild mixed plaquing in the bulb, proximal ICA and proximal ECA on two-dimensional scanning. Color flow and spectral Doppler interrogation are unremarkable on the right. Velocity chart right carotid: CCA PSV 69 cm/s ICA PSV 88 cm/s ICA EDV 8 cm/s ECA PSV 74 cm/s Right ICA/CCA ratio normal 1.3. Impression: 16-49% category narrowing in the right ICA by Doppler velocity criteria. Doppler velocities have not increased in the right ICA in the interval since the April 2014 prior study. Left carotid: There is mild mixed plaquing in the distal CCA on two-dimensional scanning on the left side. There is mild soft plaquing in the bulb, proximal ICA and proximal ECA on the left on two-dimensional scanning. Color flow and spectral Doppler interrogation are unremarkable. Velocity chart left carotid: CCA PSV 65 cm/s ICA PSV 90 cm/s ICA EDV 16 cm/s ECA PSV 154 cm/s Left ICA/CCA ratio normal 1.4. Impression: 16-49% category narrowing in the left ICA by Doppler velocity criteria. Doppler velocities have not increased in the ICA on the left since the April 2014 prior study. Signed by Marco Antonio Okeefe MD 04/05/2016 01:14 P
[2016-04-05 12:00] VITALS: BP 120/56
--- NOTE | 2016-04-05 13:19 | REP ---
CT cervical spine without contrast 04/05/2016 Indication: Compression Technique: 2 mm continuous spiral axial sections performed through the cervical spine without contrast. There is significant cervical lordosis and hyperextension of the cervical spine .There is no acute fracture or prevertebral soft tissue swelling. Also there is significant thoracic kyphosis. Visualized portions of the upper lobes of the lungs are with are without infiltrate. Extensive atherosclerotic changes are noted in the thoracic aortic arch. Impression: cervical spine without acute fracture or prevertebral soft tissue swelling. Significant cervical lordosis Signed by Aixa Nieves MD 04/05/2016 01:11 P
--- NOTE | 2016-04-05 14:42 | IPNPDOC ---
Text Note Date of Service The patient was seen on 04/05/16 at 14:17. NOTE Subjective: Patient is an 86 year old female with a PMHx of giant cell temporal arteritis (has discontinued prednisone 3 months ago), Hx of Diverticulitis, Dysphagia (on honey-thickened liquids), Frontal meningioma, Grade 1 Diastolic CHF, R eye blindness who presented to the ER with complaints of weakness and confusion. Patient described weakness occurring around the same point of discontinuing prednisone. At home was able to use a walker, but now is requiring wheel chair. Patient was admitted for weakness 2/2 possible steroid myopathy. Patient was seen and examined. She reported she has been feeling weak and fatigued. Reported some throat pain. Objective: Vitals (See below) General: Lying in bed, no acute distress, comfortable, AAOx3 HEENT: NC, AT CVS: RRR, +S1S2 Lungs: Fair air entry b/l, - w/r/r Abdomen: Soft, ND, NT, +BSx4 Extremities: +PPx4, - edema, - calf tenderness Assessment and plan: 1. Confusion / Left sided weakness - possibly 2/2 meningioma, possibly 2/2 TIA - Presented with weakness and confusion at home for the last 3 months - Weakness of the left extremities on physical exam - CT head 04/05: shows stable R frontal meningioma, no acute findings - CT Cervical / Thoracic 04/05: cervical lordosis no soft tissue swelling or fracture - f/u ECHO and 2D-Carotid US - No MRI possible 2/2 severe kyphosis - Neurology (Dr. Johns) on board - appreciate their input - Suggested trial of steroids; will start low dose 2. Hx of temporal arteritis - Has been taken off prednisone for last 3 months 3. Diabetes - 2/2 corticosteroids - will monitor glucose while inpatient - will start ISS 4. Chronic back pain, severe kyphosis - Will c/w gabapentin 5. Stage 1 Diastolic Dysfuction, CHF - EF preserved based on ECHO in 2011 6. Depression - c/w Lexapro, Zyprexa and mirtazapine 7. DVT prophylaxis - c/w SCD Contact: SonEstehla, health care proxy, phone number [phone] or [phone] VS,Maria Elena, I+O VS, Fuadbone, I+O Laboratory Tests 04/04/16 16:00 Red Blood Count 3.97 L, Mean Corpuscular Volume 95.5, Mean Corpuscular Hemoglobin 32.7, Mean Corpuscular Hemoglobin Concent 34.2, Red Cell Distribution Width 13.7, Neutrophils (%) (Auto) 75.9 H, Lymphocytes (%) (Auto) 10.0 L, Monocytes (%) (Auto) 6.4 H, Eosinophils (%) (Auto) 5.0 H, Basophils (%) (Auto) 0.9, Neutrophils # (Auto) 4.8, Lymphocytes # (Auto) 0.6 L, Monocytes # ( Auto) 0.4, Eosinophils # (Auto) 0.3, Basophils # (Auto) 0.1 04/05/16 04:42 Red Blood Count 3.80 L, Mean Corpuscular Volume 94.4, Mean Corpuscular Hemoglobin 31.7, Mean Corpuscular Hemoglobin Concent 33.6, Red Cell Distribution Width 13.4, Calcium Level 9.0 Vital Signs Date Time Temp Pulse Resp B/P Pulse Ox O2 Delivery O2 Flow Rate FiO2 04/05/16 12:00 97.2 60 18 120/56 94 Room Air I&O- Last 24 Hours up to 6 AM 04/05/16 06:00 Intake Total 30 ml Output Total 100 ml Balance -70 ml ESCOBAR GUZMÁN MD Apr 05, 2016 14:42
[2016-04-05] MEDS ORDERED: GLUCAGON FOR INJ 1 MG VIAL (J1610) SC PRN (14:45)
[2016-04-05] MEDS ORDERED: DEXTROSE 50% 50 ML SYRINGE IV PRN (14:45)
[2016-04-05] MEDS ORDERED: methylPREDNISolone INJ 125 MG/2 ML VIAL (J2930) IV SCH (14:45)
[2016-04-05] MEDS ORDERED: GLUCOSE 4 GM CHEW TABLET PO PRN (14:45)
[2016-04-05 16:00] VITALS: BP 105/56
[2016-04-05] MEDS: HumaLOG INSULIN (NovoLOG) PER UNIT SC SCH ×2 (17:30→21:22)
[2016-04-05 20:55] VITALS: BP 130/64
[2016-04-05] MEDS: SODIUM CHLORIDE NASAL 0.65% SPRAY BTL (OCEAN) SCH (21:00)
[2016-04-05] MEDS: MIRTAZAPINE 15 MG TAB PO SCH (21:23)
[2016-04-05] MEDS: OLANZapine 5 MG TAB PO SCH (21:23)
[2016-04-05] MEDS: GABAPENTIN 100 MG CAP PO PRN (21:26)
--- NOTE | 2016-04-05 22:26 | REP ---
CT brain without contrast 04/05/2016 Indication: Reevaluation, progressive weakness, right-sided weakness, altered mental status Comparison: CT brain 04/04/2016, 10/14/2014 There is moderate generalized cerebral volume loss . Periventricular and subcortical white matter hypodensities are consistent with chronic small vessel ischemic disease. There is no intra cranial hemorrhage or extra-axial fluid collection. There is no midline shift. The patient has a frontal convexity meningioma measuring 2.5 cm transverse by 1.7 cm AP dimension and not significantly changed, with thickening of the inner table of the right frontal skull. Extensive coronary artery calcifications are noted bilaterally Visualized portions of paranasal sinuses and mastoid sinuses are clear. Impression: 1 No acute intracranial pathology or hemorrhage 2. Moderate cerebral volume loss with chronic small vessel ischemic disease 3. Stable appearance of the right frontal convexity meningioma Signed by Aixa Nieves MD 04/05/2016 10:17 P
[2016-04-05 23:56] VITALS: BP 144/63
[2016-04-06 04:46] VITALS: BP 153/67
[2016-04-06 05:42] LABS: MEAN CORPUSCULAR HGB CONC 31.6 g/dl (32.0-36.5); MEAN CORPUSCULAR VOLUME 98.1 fl (80.0-96.0); RED CELL DISTRIBUTION WIDTH 14.4 % (11.5-14.5); WHITE BLOOD COUNT 5.6 K/mm3 (4.0-10.0)
[2016-04-06 05:58] LABS: ANION GAP 7 MEQ/L (8-16); BLOOD UREA NITROGEN 19 MG/DL (7-18); CALCIUM LEVEL 9.4 MG/DL (8.8-10.2); CARBON DIOXIDE LEVEL 27 MEQ/L (21-32); CHLORIDE LEVEL 109 MEQ/L (98-107); CREATININE FOR GFR 0.62 MG/DL (0.55-1.02); GLOMERULAR FILTRATION RATE > 60.0 (>32); GLUCOSE, FASTING 125 MG/DL (83-110); POTASSIUM SERUM 4.2 MEQ/L (3.5-5.1); SODIUM LEVEL 143 MEQ/L (136-145)
[2016-04-06] MEDS: HumaLOG INSULIN (NovoLOG) PER UNIT SC SCH ×4 (07:04→20:38)
--- NOTE | 2016-04-06 07:35 | ECHO ---
DATE OF PROCEDURE: 04/05/2016 REFERRING PHYSICIAN: Dr. Rodriguez INDICATION: Transient cerebral ischemia, unspecified. HEIGHT: 60 inches WEIGHT: 101 pounds, 7 ounces MEASUREMENTS: Aortic root: 3.1 cm Left atrium: 3.8 cm Ventricular septum: 1.09 cm Posterior wall: 0.90 cm Left ventricle diastole: 4.3 cm Left ventricle systole: 2.7 cm Proximal ascending aorta: 3.0 cm Right ventricle: 2.8 cm DOPPLER MEASUREMENTS: Aortic valve velocity: 148 cm/s LVOT velocity: 126 cm/s LVOT VTI: 24.7 cm Very mild mitral regurgitation. Mitral E velocity: 90.1 cm/s Mitral A velocity: 115 cm/s Mitral deceleration time: 261 ms Very mild tricuspid regurgitation. Estimated right ventricle systolic pressure 29 mmHg assuming a right atrial pressure of 5 mmHg. MITRAL ANNULAR TISSUE DOPPLER: E prime lateral: 10.9 cm/s E prime septal: 6.0 cm/s DESCRIPTION: Rhythm was sinus. Image quality was fair. No pericardial effusion. This is a 2D, M-mode, color flow Doppler and pulse wave Doppler examination that included mitral annular tissue Doppler. No pericardial effusion. CONCLUSIONS: 1. Normal left ventricle internal dimensions and wall thickness. Normal left ventricle (LV) wall motion and wall thickening. Normal LV systolic function. Left ventricular ejection fraction (LVEF) 70% by visual estimate. Grade 1 LV diastolic dysfunction (impaired relaxation filling pattern). 2. Very mild left atrial dilatation. 3. Mild aortic valve sclerosis of a three-cuspid aortic valve, 4. Moderate mitral annular calcification. No mitral stenosis. Very mild mitral regurgitation. 5. Otherwise normal echocardiogram Doppler. [facility] [place] [facility]
[2016-04-06 08:00] VITALS: BP 113/55
[2016-04-06] MEDS: LORATADINE 10 MG TAB PO SCH (08:53)
[2016-04-06] MEDS: ESCITALOPRAM OXALATE 5MG TABLET (LEXAPRO) PO SCH (08:54)
[2016-04-06] MEDS: ASPIRIN 81 MG ENTERIC TAB PO SCH (08:54)
[2016-04-06] MEDS: HEPARIN SOD (PORCINE) 5000 UNITS/ML VIAL SC SCH ×2 (08:54→20:35)
[2016-04-06] MEDS: FLUTICASONE PROP 0.05% NASAL SPRAY 16 GM (FLONASE) SCH (08:54)
[2016-04-06 12:00] VITALS: BP 126/55
--- NOTE | 2016-04-06 13:48 | IPNPDOC ---
Text Note Date of Service The patient was seen on 04/06/16 at 13:39. NOTE Subjective: Patient is an 86 year old female with a PMHx of giant cell temporal arteritis (has discontinued prednisone 3 months ago), Hx of Diverticulitis, Dysphagia (on honey-thickened liquids), Frontal meningioma, Grade 1 Diastolic CHF, R eye blindness who presented to the ER with complaints of weakness and confusion. Patient described weakness occurring around the same point of discontinuing prednisone. At home was able to use a walker, but now is requiring wheel chair. Patient was admitted for weakness 2/2 possible steroid myopathy. Patient was seen and examined. She reports that she has no problems this morning. Objective: Vitals (See below) General: Lying in bed, no acute distress, comfortable, AAOx3 HEENT: NC, AT CVS: RRR, +S1S2 Lungs: Fair air entry b/l, - w/r/r Abdomen: Soft, ND, NT, +BSx4 Extremities: +PPx4, - edema, - calf tenderness Neuro: Moving all four extremities; Babinski + b/l Assessment and plan: 1. Confusion / Left sided weakness - possibly 2/2 meningioma, possibly 2/2 TIA - Presented with weakness and confusion at home for the last 3 months - Weakness of the left extremities on physical exam initially - CT head 04/05: shows stable R frontal meningioma, no acute findings - CT Cervical / Thoracic 04/05: cervical lordosis no soft tissue swelling or fracture; possible narrowing at thoracic area - Carotid US 04/05: 16-49% narrowing of L ICA - ECHO pending - No MRI possible 2/2 severe kyphosis; will schedule for open MRI on 04/07 - Will schedule for open MRI to evaluate definitely - Discussed with family and healthcare proxy; they are aware that this could be cord compression, however they do not want any surgical intervention at this time - Neurology (Dr. Johns) on board - appreciate their input 2. Hx of temporal arteritis - Has been taken off prednisone for last 3 months 3. Diabetes - 2/2 corticosteroids - will monitor glucose while inpatient - c/w ISS 4. Chronic back pain, severe kyphosis - c/w gabapentin 5. Stage 1 Diastolic Dysfuction, CHF - EF preserved based on ECHO in 2011 6. Depression - c/w Lexapro, Zyprexa and mirtazapine 7. DVT prophylaxis - c/w SCD Contact: Son, Esthela Shahid, health care proxy, phone number [phone] or [phone] VS,Maria Elena, I+O VS, Maria Elena, I+O Laboratory Tests 04/06/16 04:50 Calcium Level 9.4, Red Blood Count 3.96 L, Mean Corpuscular Volume 98.1 H, Mean Corpuscular Hemoglobin 31.0, Mean Corpuscular Hemoglobin Concent 31.6 L, Red Cell Distribution Width 14.4 Vital Signs Date Time Temp Pulse Resp B/P Pulse Ox O2 Delivery O2 Flow Rate FiO2 04/06/16 12:00 98.1 85 18 126/55 95 Room Air I&O- Last 24 Hours up to 6 AM 04/06/16 05:59 Intake Total 840 ml Output Total 375 ml Balance 465 ml ESCOBAR GUZMÁN MD Apr 06, 2016 13:48
[2016-04-06 16:00] VITALS: BP 106/53
[2016-04-06] MEDS: MIRTAZAPINE 15 MG TAB PO SCH (20:35)
[2016-04-06] MEDS: GABAPENTIN 100 MG CAP PO PRN (20:35)
[2016-04-06] MEDS: OLANZapine 5 MG TAB PO SCH (20:35)
[2016-04-06] MEDS: SODIUM CHLORIDE NASAL 0.65% SPRAY BTL (OCEAN) SCH (20:36)
--- NOTE | 2016-04-06 21:06 | CR ---
DATE OF CONSULTATION: 04/06/2016 REASON FOR CONSULTATION: Progressive weakness of lower extremities, left greater than right, and history of right frontal lobe meningioma. HISTORY OF PRESENT ILLNESS: Alisha Shahid this is an 86-year-old female with past medical history significant for temporal arteritis previously on prednisone with normalized erythrocyte sedimentation rate (ESR), vision loss of the right eye due to the temporal arteritis. The patient is followed in the [facility] by Dr. Martinez. Over the past few months, the patient's family members report that she has been becoming progressively weaker, having more and more difficulty getting around with use of her walker. The patient was brought to [facility] and, unfortunately, MRI was not possible due to the patient having significant kyphosis with inability to lay completely flat for the MRI table. The patient did, however, undergo CT scans of the cervical and thoracic spine showing significant arthritic changes, as well as reduced AP diameter around the T5 vertical body region. This is suggestive of possible compression of the spinal cord. The patient does have brisk reflexes at the patellas and Achilles with questionable Babinski signs. The family did decide that they would not like to pursue any sort of surgical intervention either way, as the patient in general shuffles around with the use of her walker and given her age and comorbidities, they would not like to pursue any surgery. There is also a possibility that the right frontal meningioma that the patient has had for a number of years may have produced less mass effect and edema when she was on steroids. While off steroids there is the possibility the patient may be experiencing further left lower extremity weakness as a result of being off steroids. In the hospital, she was given intravenous (IV) Solu-Medrol 40 mg, which is equivalent to 50 mg prednisone old dosage. I did recommend surgical consult through either the orthopedic or neurosurgical spine team. Primary care provider was going to speak with the family members in regards to whether they would like to pursue any surgical evaluation. PAST MEDICAL HISTORY: 1. Prednisone-induced diabetes. 2. Temporal arteritis. 3. Diverticulitis. 4. History of dysphasia. 5. Right frontal lobe meningioma. 6. History of hemorrhoids. 7. Grade 1 diastolic heart failure ejection fraction (EF) 60% to 65% in 2011. 8. 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 PAST SURGICAL HISTORY 1. Hysterectomy. 2. Cataract surgery bilaterally. 3. Colonoscopy. ALLERGIES: 1. AMOXICILLIN - rash. 2. CIPRO - rash. 3. PENICILLIN - rash. 4. BEE STINGS. HOME MEDICATIONS: - aspirin 81 mg by mouth daily - Calcium 600 mg by mouth daily - Colace 100 mg by mouth twice a day - Lexapro 5 mg by mouth daily - Flonase two sprays nasally daily - gabapentin 100 mg by mouth at bedtime; on occasion, two tablets for increased pain. - loratadine 10 mg by mouth daily - Medihoney topical twice a day for any sores - melatonin 3 mg by mouth at bedtime - mirtazapine 15 mg by mouth at bedtime - multivitamin by mouth daily - mupirocin 2% ointment as needed for rash - olanzapine 5 mg by mouth at bedtime - MiraLAX 17 grams by mouth daily - nasal saline spray nightly SOCIAL HISTORY: The patient is a former tobacco user with a 30 pack-year history. Does not use any alcohol or any recreational drugs. FAMILY HISTORY: Noncontributory. REVIEW OF SYSTEMS 14-point review of systems obtained and is negative except as per history of present illness (HPI). PHYSICAL EXAMINATION Blood pressure is 115/53, pulse rate 64, respiratory rate is 18, temperature 96.5 degrees Fahrenheit. Current height 5 feet 0 inches, current weight 46.6 kg. The patient is alert and oriented to her name and location. She is able to follow commands. Speech is without dysarthria or aphasia. Strength testing appears to demonstrate decreased strength of bilateral lower extremities, left greater than right. The patient has some inability to 100% cooperate during the examination, though she demonstrates adequate strength in bilateral upper extremities when testing biceps, minimally reduced triceps, hand blower mechanic are 5- bilaterally. Sensory is intact to light touch in all four extremities. Deep tendon reflexes are 2+ in the upper extremities, 3+ in the patellas, 2+ at the Achilles. Partial Babinski signs with possibility that the patient may be withdrawing to noxious stimuli in the sole of foot. Coordination does not show any gross ataxia. Cranial nerves: Pupils are 2.5 mm, round, reactive to light. Extraocular movements are intact in all directions without any asymmetry. Palate elevates symmetrically. Tongue is midline. No facial weakness on activation. Hearing subjectively equal to finger rub. ASSESSMENT: Generalized weakness, lower extremity weakness with concurrent hyperreflexia. Suspect cord etiology. PLAN: 1. CT scan of the cervical and thoracic spine have been completed with question of decreased API diameter at the T5 level, suggesting possible cord compression. Recommend obtaining an MRI of the thoracic spine and cervical spine using the open MRI scanner on Thursday. 2. Recommend to continue physical therapy (PT) and occupational therapy (OT). 3. Can consider low-dose steroids for treatment of possible vasogenic edema component from right frontal meningioma leading to the left lower extremity weakness. 4. Family at this point discussed with primary care team. They would not like to pursue any surgical intervention, either for the right frontal lobe meningioma as well as the abnormal findings seen on CT of the thoracic spine. Recommend conservative management at this point.
[2016-04-06 21:13] VITALS: BP 127/61
--- NOTE | 2016-04-06 23:37 | EDDOCDS ---
Physician Documentation [facility] Name: Alisha Shahid Age: 86 yrs Sex: Female : 1930 Arrival Date: 04/04/2016 Time: 15:17 Bed 5 Private MD: Makayla Luna E Disposition: 04/04 19:46 Critical Care: Critical care not applicable. hortensia Disposition: 04/04/16 19:46 Hospitalization ordered by Hector Nelson for Observation. Preliminary diagnosis is Other transient cerebral ischemic attacks and related syndromes - possible, needs further evaluation. - Bed requested for PCU. - Status is Observation. [id number] - Condition is Stable. - Problem is an ongoing problem. - Symptoms are unchanged. Historical: - Allergies: Amoxicillin (Rash); Cipro PO (Rash); PENICILLINS (Hives, Rash); Bees; - Home Meds: 1. aspirin 81 mg Oral tab 1 tab once daily 2. Calcium + Vitamin D 600 mg calcium- 200 unit Oral tab 2 tab daily 3. Miralax 17 gram/dose Oral powd once daily 4. fluticasone 50 mcg/actuation nasal spsn 2 sprays once daily 5. Lexapro 5 mg Oral tab 1 tab once daily 6. Doc-Q-Lace 100 mg oral cap 1 cap 2 times per day 7. melatonin 3 mg Oral tab nightly 8. gabapentin 100 mg Oral cap daily 9. Zyprexa 5 mg Oral tab 1 tab nightly 10. mirtazapine 15 mg Oral TbDL 1 tab once daily - PMHx: CHF; Diabetes - NIDDM: controlled; temporal arteritis; - PSHx: Hysterectomy; Cataract Surgery- Bilateral; - Social history: Smoking status: Patient states former smoker of tobacco. No barriers to communication noted, The patient speaks fluent Luxembourgish. - Family history: Not pertinent. - : The pt / caregiver states he / she is not on anticoagulants. Home medication list is obtained from the patient. - Exposure Risk Screening:: None identified. Vital Signs: 15:18 BP 95 / 54; Pulse 77; Resp 18 S; Temp 96.3; Pulse Ox 97% on R/A; Weight 58.97 kg / dd6 130.01 lbs (R); Height 5 ft. 0 in. (152.40 cm) (R); 16:00 Pulse 64 MON; Pulse Ox 95% ; srm 16:00 BP 118 / 58 (auto/); srm 16:10 BP 115 / 52 (auto/); srm 16:10 Pulse 58 MON; Resp 18; Pulse Ox 96% ; srm 16:40 Pulse 62 MON; Pulse Ox 93% ; srm 16:40 BP 131 / 62 (auto/); srm 17:10 Pulse 58 MON; Pulse Ox 96% ; srm 17:10 BP 162 / 70 (auto/); srm 17:53 BP 154 / 70 (auto/); srm 17:53 Pulse 62 MON; Resp 18; Pulse Ox 97% ; srm 18:40 BP 165 / 72 (auto/); js15 18:40 Pulse 50 MON; Pulse Ox 97% ; js15 19:06 Pulse 52 MON; Pulse Ox 96% ; js15 21:15 BP 130 / 65; Pulse 63; Resp 18; Temp 98.2; Pulse Ox 94% ; Pain 0/10; js15 15:18 Body Mass Index 25.39 (58.97 kg, 152.40 cm) dd6 MDM: 16:56 Retail Director/Pulse Ox/q 15 min VS ordered. le 16:56 Accucheck ordered. le 16:57 IV Saline Lock ordered. le 16:57 Oxygen at 4L/Min NC or Home dosage ordered. le 16:57 Rhythm Strip to chart ordered. le 16:57 -Blood Culture (Adults Only), peripheral from different site, or from device/port/PICC le etc. if present ordered. 16:58 CBC with Diff Ordered. EDMS 16:58 Cardiac Injury Profile Ordered. EDMS 16:58 Liver Profile Ordered. EDMS 16:58 MED Profile Ordered. EDMS 16:58 Thyroid Stimulating Hormone Ordered. EDMS 16:58 Troponin Ordered. EDMS 16:58 Urinalysis Ordered. EDMS 16:58 Urine Culture Ordered. EDMS 16:58 -Blood Culture Ordered. EDMS 16:58 CT Head Without Contrast Ordered. EDMS 16:58 ECG WITH READING ER PHYS+CARDIAG ordered. EDMS 16:59 Chest, 2 View (pa\E\lat) Ordered. EDMS 17:02 Financial registration complete. zo 17:04 [facility] Payment Agreement was scanned into [employer] and attached to record. zo 17:18 -Blood Culture (Adults Only), peripheral from different site, or from device/port/PICC lbd etc. if present complete. 17:21 BLOOD CULTURES Ordered. EDMS 17:28 ESR Ordered. EDMS 17:30 C REACTIVE PROTEIN QUANTITATIV Ordered. EDMS 17:43 Fingerstick Blood Sugar Ordered. EDMS 18:22 CBC with Diff Reviewed. le 18:22 Liver Profile Reviewed. le 18:22 MED Profile Reviewed. le 18:22 Urinalysis Reviewed. le 18:22 C REACTIVE PROTEIN QUANTITATIV Reviewed. le 18:22 Fingerstick Blood Sugar Reviewed. le 18:22 Cardiac Injury Profile Reviewed. le 18:22 Thyroid Stimulating Hormone Reviewed. le 18:22 Troponin Reviewed. le 18:22 ESR Reviewed. le 18:22 CT Head Without Contrast Reviewed. le 18:29 MRI Screening Tool - Place on chart, inform RN ordered. le 18:42 MRI Screening Tool - Place on chart, inform RN complete. lbd 19:36 BED REQUEST+ADM ordered. EDMS 20:25 2 GRAM SODIUM DIET ordered. EDMS 20:25 COMPLETE BLOOD COUNT Ordered. EDMS 20:25 BASIC METABOLIC PROFILE Ordered. EDMS 20:51 Admission / Observation Status ordered. EDMS 20:58 Duplex,carotid (complete) Ordered. EDMS 20:59 ECHOCARD,DOPPLER/COLOR FLOW ordered. EDMS 20:59 CT Head without contrast Ordered. EDMS 04/05 12:47 T-Sheet-- Draft Copy was scanned into [employer] and attached to record. 12:48 ECG/EKG was scanned into [employer] and attached to record. Point of Care Testing: Blood Glucose: 04/04 17:31 Blood Glucose: 140 mg/dL; srm Ranges: Signatures: Dispatcher [employer] EDMS Shavon Machado, Employee Development Manager Unit lbd Iveth Pedroza RN RN srm Francine To, Reg Reg gb Marissa MelodyIsatuGeorgiana, Employee Development Manager Unit ml3 Katarzyna Klein Lisa, [employer] Blanka Carbone RN RN rs3 Savanah Marcano,RN RN js15 The chart was reviewed and I authenticate all verbal orders and agree with the evaluation and treatment provided.Corrections: (The following items were deleted from the chart) 17:31 17:28 C REACTIVE PROTEIN QUANTITATIV+LAB ordered. EDMS EDMS 19:28 18:30 MRA-Brain without contrast+MR ordered. EDMS EDMS 19:28 18:31 MRI-Brain without+MR ordered. EDMS EDMS Attachments: 17:04 [facility] Payment Agreement zo 04/05 12:47 T-Sheet-- Draft Copy gb 12:48 ECG/EKG gb Chart Complete MTDD
--- NOTE | 2016-04-06 23:37 | EDDOCDS ---
Nurse's Notes [facility] Name: Alisha Shahid Age: 86 yrs Sex: Female : 1930 Arrival Date: 04/04/2016 Time: 15:17 Bed 5 Private MD: Makayla Luna E Diagnosis: Other transient cerebral ischemic attacks and related syndromes-possible, needs further evaluation Presentation: 04/04 15:23 Presenting complaint: Niece states patient is getting progressively weak,confused for a rs3 week. The last date and time the patient was known to be well was was at an unknown time on an unknown date. No acute neurological deficit is noted. Pre-hospital glucose is not applicable to this patient. Adult Sepsis Screening: The patient does not have new or worsening altered mentation. Patient's respiratory rate is less than 22. Systolic blood pressure is greater than 100. Patient has a qSOFA score of 0- Negative Sepsis Screen. Suicide/Homicide risk assessment- the patient denies having any suicidal and/or homicidal ideations and does not present with any other emotional, behavioral or mental health complaints. Status: Patient is not a food services director or dependent. Transition of care: patient was not received from another setting of care. 15:23 Acuity: STEVEN Level 3 rs3 15:23 Method Of Arrival: Wheelchair rs3 Triage Assessment: 15:27 The onset of the patients symptoms was at an unknown time. General: Appears in no rs3 apparent distress. Pain: Denies pain. Neurological: Level of Consciousness is awake, alert, Reports weakness. Historical: - Allergies: Amoxicillin (Rash); Cipro PO (Rash); PENICILLINS (Hives, Rash); Bees; - Home Meds: 1. aspirin 81 mg Oral tab 1 tab once daily 2. Calcium + Vitamin D 600 mg calcium- 200 unit Oral tab 2 tab daily 3. Miralax 17 gram/dose Oral powd once daily 4. fluticasone 50 mcg/actuation nasal spsn 2 sprays once daily 5. Lexapro 5 mg Oral tab 1 tab once daily 6. Doc-Q-Lace 100 mg oral cap 1 cap 2 times per day 7. melatonin 3 mg Oral tab nightly 8. gabapentin 100 mg Oral cap daily 9. Zyprexa 5 mg Oral tab 1 tab nightly 10. mirtazapine 15 mg Oral TbDL 1 tab once daily - PMHx: CHF; Diabetes - NIDDM: controlled; temporal arteritis; - PSHx: Hysterectomy; Cataract Surgery- Bilateral; - Social history: Smoking status: Patient states former smoker of tobacco. No barriers to communication noted, The patient speaks fluent Cambodian. - Family history: Not pertinent. - : The pt / caregiver states he / she is not on anticoagulants. Home medication list is obtained from the patient. - Exposure Risk Screening:: None identified. Screenin:03 Screening information is obtained from the patient, the caregiver. Fall risk: At risk srm due to age, gait disturbance, The following interventions are performed due to a positive Fall Risk Screen: Fall Risk is added to Special Handling on the patient Summary Screen. A Fall Risk Bracelet was applied to the patient. Side Rails are placed in the up position. A Call Davis is given with instruction to call for help when getting out of bed. Fall Alert bracelet is placed on the patient. home support is adequate. 22:19 Assistance ADL's: Requires assistance with meal preparation, this assistance is js15 provided by family members, bathing, assistance is provided by family members, dressing, assistance is provided by family members, toileting, assistance is provided by family members, medication administration, assistance is provided by family members. Abuse/DV Screen: The patient / caregiver reports he/she is: not in a situation that causes fear, pain or injury. Nutritional screening: No deficits noted. 22:22 Advance Directives: Currently, there is a health care proxy, Son- Esthela Shahid. js15 Assessment: 16:02 General: Appears in no apparent distress, Behavior is appropriate for age, cooperative. srm Neurological: Level of Consciousness is awake, alert, Oriented to person, place, Speech is normal, Facial symmetry appears normal. Respiratory: Airway is patent Respiratory effort is even, unlabored, Breath sounds are clear bilaterally. GI: Abdomen is non- distended Bowel sounds present X 4 quads. Abd is soft and non tender X 4 quads. Derm: No deficits noted. 17:31 General: Appears in no apparent distress, Behavior is appropriate for age, cooperative. srm Neurological: Level of Consciousness is awake, alert, Oriented to person, place. Cardiovascular: Rhythm is sinus rhythm. Respiratory: No deficits noted. GI: No deficits noted. 19:09 General: Appears in no apparent distress, Behavior is appropriate for age, cooperative. srm Neurological: Level of Consciousness is awake, alert, Oriented to person, place, Speech is normal, Facial symmetry appears normal. Cardiovascular: No deficits noted. Respiratory: No deficits noted. GI: No deficits noted. 20:30 General: Appears in no apparent distress, Behavior is appropriate for age, cooperative. js15 Pain: Denies pain. Neurological: Level of Consciousness is awake, alert, obeys commands, Oriented to person, place. Respiratory: Airway is patent Respiratory effort is even, unlabored, Respiratory pattern is regular, symmetrical. Derm: Skin is pink, warm & dry. 21:45 Reassessment: Patient appears in no apparent distress at this time. Pt sitting up, js15 awake and alert; eating diet tray with family at bedside; respirations even and unlabored; skin pink, warm, dry. Vital Signs: 15:18 BP 95 / 54; Pulse 77; Resp 18 S; Temp 96.3; Pulse Ox 97% on R/A; Weight 58.97 kg (R); dd6 Height 5 ft. 0 in. (152.40 cm) (R); 16:00 Pulse 64 MON; Pulse Ox 95% ; srm 16:00 BP 118 / 58 (auto/); srm 16:10 BP 115 / 52 (auto/); srm 16:10 Pulse 58 MON; Resp 18; Pulse Ox 96% ; srm 16:40 Pulse 62 MON; Pulse Ox 93% ; srm 16:40 BP 131 / 62 (auto/); srm 17:10 Pulse 58 MON; Pulse Ox 96% ; srm 17:10 BP 162 / 70 (auto/); srm 17:53 BP 154 / 70 (auto/); srm 17:53 Pulse 62 MON; Resp 18; Pulse Ox 97% ; srm 18:40 BP 165 / 72 (auto/); js15 18:40 Pulse 50 MON; Pulse Ox 97% ; js15 19:06 Pulse 52 MON; Pulse Ox 96% ; js15 21:15 BP 130 / 65; Pulse 63; Resp 18; Temp 98.2; Pulse Ox 94% ; Pain 0/10; js15 15:18 Body Mass Index 25.39 (58.97 kg, 152.40 cm) dd6 Vitals: 15:18 Log In Time: April 04, 2016 at 15:16. dd6 15:19 RN notified that patient meets Red Flag criteria. dd6 ED Course: 15:18 Patient visited by Terrance Delvalle PCA. dd6 15:18 Makayla Luna is Private Physician. dd6 15:18 Patient moved to Waiting dd6 15:23 Triage Initiated rs3 15:27 Patient moved to 5 rs3 15:42 Dariana Judge FNP is PHCP. le 16:02 The patient / caregiver is instructed regarding the plan of care and ED course. srm Accompanied by Family Member, Patient has correct armband on for positive identification. Placed in gown. personnel monitor on. Pulse ox on. NIBP on. 16:02 Inserted saline lock: 20 gauge in right antecubital area and blood collected. The [facility] patient tolerated the procedure well. 16:02 Missed attempts: 20 gauge in left wrist. srm 16:04 Patient visited by Iveth Pedroza RN. srm 16:16 Patient visited by Dariana Judge FNP. le 16:16 Patient visited by Dariana Judge FNP. le 17:00 CBC with Diff Sent. srm 17:00 Cardiac Injury Profile Sent. srm 17:00 Liver Profile Sent. srm 17:00 MED Profile Sent. srm 17:00 Thyroid Stimulating Hormone Sent. srm 17:00 Troponin Sent. srm 17:04 [facility] [place] Payment Agreement was scanned into [employer] and attached to record. zo 17:15 Urine collected. straight cath specimen. srm 17:16 Patient visited by Iveth Pedroza RN. srm 17:29 BLOOD CULTURES Sent. srm 17:30 C REACTIVE PROTEIN QUANTITATIV Sent. srm 17:30 ESR Sent. srm 17:31 Patient visited by Iveth Pedroza RN. srm 17:58 Patient visited by Iveth Pedroza RN. srm 18:21 CT Head Without Contrast Returned. EDMS 18:27 EKG done. (by ED staff). Reviewed by Dariana ARELLANO. rn1 19:09 Patient visited by Iveth Pedroza RN. srm 19:46 Hector Nelson MD is Hospitalizing Provider. le 20:20 Chest, 2 View (pa\E\lat) Returned. EDMS 22:19 No procedures done that require assistance. js15 04/05 12:47 T-Sheet-- Draft Copy was scanned into [employer] and attached to record. gb 12:48 ECG/EKG was scanned into [employer] and attached to record. Point of Care Testing: Blood Glucose: 04/04 17:31 Blood Glucose: 140 mg/dL; srm Ranges: Order Results: Lab Order: CBC with Diff; SPEC'M 04/04/16 16:00 Test: WHITE BLOOD COUNT; Value: 6.3; Range: 4.0-10.0; Units: K/mm3; Status: F Test: RED BLOOD COUNT; Value: 3.97; Range: 4.00-5.40; Abnormal: Below low normal; Units: M/mm3; Status: F Test: HEMOGLOBIN; Value: 13.0; Range: 12.0-16.0; Units: g/dl; Status: F Test: HEMATOCRIT; Value: 37.9; Range: 36.0-47.0; Units: %; Status: F Test: MEAN CORPUSCULAR VOLUME; Value: 95.5; Range: 80.0-96.0; Units: fl; Status: F Test: MEAN CORPUSCULAR HEMOGLOBIN; Value: 32.7; Range: 27.0-33.0; Units: pg; Status: F Test: MEAN CORPUSCULAR HGB CONC; Value: 34.2; Range: 32.0-36.5; Units: g/dl; Status: F Test: RED CELL DISTRIBUTION WIDTH; Value: 13.7; Range: 11.5-14.5; Units: %; Status: F Test: PLATELET COUNT, AUTOMATED; Value: 276; Range: 150-450; Units: k/mm3; Status: F Test: NEUTROPHILS %; Value: 75.9; Range: 36.0-66.0; Abnormal: Above high normal; Units: %; Status: F Test: LYMPH %; Value: 10.0; Range: 24.0-44.0; Abnormal: Below low normal; Units: %; Status: F Test: MONO %; Value: 6.4; Range: 0.0-5.0; Abnormal: Above high normal; Units: %; Status: F Test: EOS %; Value: 5.0; Range: 0.0-3.0; Abnormal: Above high normal; Units: %; Status: F Test: BASO %; Value: 0.9; Range: 0.0-1.0; Units: %; Status: F Test: LARGE UNSTAINED CELL %; Value: 1.7; Range: 0.0-4.0; Units: %; Status: F Test: NEUTROPHILS #; Value: 4.8; Range: 1.8-7.7; Units: K/mm3; Status: F Test: LYMPH #; Value: 0.6; Range: 1.5-4.5; Abnormal: Below low normal; Units: K/mm3; Status: F Test: MONO #; Value: 0.4; Range: 0.0-0.8; Units: K/mm3; Status: F Test: EOS #; Value: 0.3; Range: 0.0-0.50; Units: K/mm3; Status: F Test: BASO #; Value: 0.1; Range: 0.0-0.2; Units: K/mm3; Status: F Test: LARGE UNSTAINED CELL #; Value: 0.1; Range: 0.0-0.4; Units: K/mm3; Status: F Lab Order: Cardiac Injury Profile; SPEC'M 04/04/16 16:00 Test: CPK CREATINE PHOSPHOKINASE; Value: 32; Range: 26-192; Units: U/L; Status: F Test: CK-MB VALUE MASS; Value: 1.0; Range: 0.0-3.6; Units: NG/ML; Status: F Test: MB/CK RELATIVE INDEX; Value: 3.12; Range: < OR =4; Status: F Test Note: ; DIAGNOSIS CRITERIA MMB ng/ml Relative Index (RI) NON-AMI < or = 5 N/A [place] ZONE > 5 < or = 4 AMI > 5 > 4 Lab Order: Liver Profile; SPEC'M 04/04/16 16:00 Test: AST/SGOT; Value: 24; Range: 15-37; Units: U/L; Status: F Test: ALT/SGPT; Value: 37; Range: 12-78; Units: U/L; Status: F Test: ALKALINE PHOSPHATASE; Value: 164; Range: 45-117; Abnormal: Above high normal; Units: U/L; Status: F Test: BILIRUBIN,TOTAL; Value: 0.3; Range: 0.2-1.0; Units: MG/DL; Status: F Test: BILIRUBIN,DIRECT; Value: 0.1; Range: 0.0-0.2; Units: MG/DL; Status: F Test: TOTAL PROTEIN; Value: 6.0; Range: 6.4-8.2; Abnormal: Below low normal; Units: GM/DL; Status: F Test: ALBUMIN; Value: 3.2; Range: 3.2-5.2; Units: GM/DL; Status: F Test: ALBUMIN/GLOBULIN RATIO; Value: 1.14; Range: 1.00-1.93; Status: F Lab Order: MED Profile; SPEC'M 04/04/16 16:00 Test: GLUCOSE, FASTING; Value: 152; Range: 83-110; Abnormal: Above high normal; Units: MG/DL; Status: F Test: BLOOD UREA NITROGEN; Value: 18; Range: 7-18; Units: MG/DL; Status: F Test: CREATININE FOR GFR; Value: 0.93; Range: 0.55-1.02; Units: MG/DL; Status: F Test: GLOMERULAR FILTRATION RATE; Value: > 60.0; Range: >32; Status: F Test: SODIUM LEVEL; Value: 145; Range: 136-145; Units: MEQ/L; Status: F Test: POTASSIUM SERUM; Value: 4.2; Range: 3.5-5.1; Units: MEQ/L; Status: F Test: CHLORIDE LEVEL; Value: 108; Range: 98-107; Abnormal: Above high normal; Units: MEQ/L; Status: F Test: CARBON DIOXIDE LEVEL; Value: 29; Range: 21-32; Units: MEQ/L; Status: F Test: ANION GAP; Value: 8; Range: 8-16; Units: MEQ/L; Status: F Test: CALCIUM LEVEL; Value: 9.3; Range: 8.8-10.2; Units: MG/DL; Status: F Test Note: ; Units are mL/min/1.73 m2 Chronic Kidney Disease Staging per NKF: Stage I & II GFR >=60 Normal to Mildly Decreased Stage III GFR 30-59 Moderately Decreased Stage IV GFR 15-29 Severely Decreased Stage V GFR <15 Very Little GFR Left ESRD GFR <15 on BALLET SOLOIST Lab Order: Thyroid Stimulating Hormone; SPEC'M 04/04/16 16:00 Test: THYROID STIMULATING HORMONE; Value: 1.820; Range: 0.358-3.740; Units: uIU/ML; Status: F Lab Order: Troponin; SPEC'M 04/04/16 16:00 Test: TROPONIN I; Value: < 0.02; Range: < 0.10; Units: NG/ML; Status: F Test Note: ; Troponin I Reference Interval for Siemens ScanNano LOCI: 99th Percentile= 0.00-0.045 ng/ml Risk Stratification: <= 0.10 ng/ml Decreased Risk for Adverse Clinical Events. 0.10-1.50 ng/ml Increased Risk for Adverse Clinical Events. Evaluation of additional criterion and/or repeat testing in 2-6 hours is suggested to rule out myocardial damage. >= 1.50 ng/ml Indicative of Myocardial Injury. Lab Order: Urinalysis; SPEC'M 04/04/16 17:16 Test: APPEARANCE, URINE; Value: CLOUDY; Range: CLEAR; Abnormal: Above high normal; Status: F Test: COLOR, URINE; Value: MARIA C; Range: YELLOW; Status: F Test: PH,URINE; Value: 5.0; Range: 5.0-9.0; Units: UNITS; Status: F Test: SPECIFIC GRAVITY URINE AUTO; Value: 1.023; Range: 1.002-1.035; Status: F Test: PROTEIN, URINE AUTO; Value: NEGATIVE; Range: NEGATIVE; Units: mg/dL; Status: F Test: GLUCOSE, URINE (UA) AUTO; Value: NEGATIVE; Range: NEGATIVE; Units: mg/dL; Status: F Test: KETONE, URINE AUTO; Value: NEGATIVE; Range: NEGATIVE; Units: mg/dL; Status: F Test: UROBILINOGEN, URINE AUTO; Value: 2.0; Range: 0.0-2.0; Abnormal: Above high normal; Units: mg/dL; Status: F Test: BILIRUBIN, URINE AUTO; Value: NEGATIVE; Range: NEGATIVE; Status: F Test: NITRITE, URINE AUTO; Value: NEGATIVE; Range: NEGATIVE; Status: F Test: LEUKOCYTE ESTERASE, URINE AUTO; Value: NEGATIVE; Range: NEGATIVE; Status: F Test: BLOOD, URINE BLOOD; Value: 1+; Range: NEGATIVE; Abnormal: Above high normal; Status: F Test: WBC, URINE AUTO; Value: 4; Range: 0-3; Abnormal: Above high normal; Units: /HPF; Status: F Test: RBC, URINE AUTO; Value: 6; Range: 0-3; Abnormal: Above high normal; Units: /HPF; Status: F Test: BACTERIA, URINE AUTO; Value: NEGATIVE; Range: NEGATIVE; Status: F Test: SQUAMOUS EPITHELIAL CELL UR AU; Value: 9; Range: 0-6; Units: /HPF; Status: F Test: MUCUS, URINE; Value: SMALL; Range: NEGATIVE; Status: F Test: HYALINE CAST, URINE AUTO; Value: 4; Range: 0-1; Units: /LPF; Status: F Lab Order: ESR; [facility] 04/04/16 16:00 Test: ERYTHROCYTE SEDIMENTATION RATE; Value: 22; Range: 0-42; Units: mm/hr; Status: F Lab Order: C REACTIVE PROTEIN QUANTITATIV; [facility] 04/04/16 16:00 Test: C REACTIVE PROTEIN QUANTITATIV; Value: 0.67; Range: 0.00-0.30; Abnormal: Above high normal; Units: MG/DL; Status: F Lab Order: Fingerstick Blood Sugar; [facility] 04/04/16 17:25 Test: BEDSIDE GLUCOSE; Value: 140; Range: 83-110; Abnormal: Above high normal; Units: MG/DL; Status: F Radiology Order: CT Head Without Contrast Test: CT Head Without Contrast REASON FOR EXAMINATION: altered mental status with intermittent right sided deficits; CT brain without contrast 04/04/2016; ; Indication: Mental status with intermittent right-sided deficits.; ; Comparison: CT brain 10/14/2014; ; Findings: There is moderate generalized cerebral volume loss. Small to moderate; areas of periventricular subcortical white matter hypodensities are consistent; with chronic small vessel ischemic disease. There is no intracranial hemorrhage; or extra-axial fluid collection. As previously noted there is a calcified right; frontal convexity meningioma of approximately 2.5 cm maximal transverse dimension; and 1.7 cm AP dimension not significantly changed in size yet with some increased; thickening of the inner table of the right frontal skull.; ; Visualized portions of paranasal sinuses and mastoid sinuses are clear.; ; Impression; 1. No acute intracranial pathology or hemorrhage; 2. Moderate generalized cerebral volume loss with chronic small vessel ischemic; disease; 3. No significant change within the size of the right frontal convexity; meningioma. However there does appear to be some mild increased cortical; thickening within the inner table of the right frontal skull.; ; ; Signed by; Aixa Nieves MD 04/04/2016 06:05 P; Radiology Order: Chest, 2 View (pa\E\lat) Test: Chest, 2 View (pa\E\lat) REASON FOR EXAMINATION: altered mental status/weaknes; AP portable sitting chest radiograph:; ; Indication: Altered mental status, weakness.; ; Comparison: PA and lateral chest 11/15/2013 performed at [facility].; ; Findings: Cardiac silhouette is mildly enlarged with left ventricular; prominence. Dense atherosclerotic changes are noted in the aortic arch and; descending thoracic aorta. Small amount of bibasilar atelectatic changes are; noted as well as pulmonary venous hypertension.; ; Impression:; Mild cardiomegaly with left ventricular enlargement, stable.; ; Dense atherosclerotic changes in the thoracic aorta.; ; Pulmonary venous hypertension and/or fibrotic scarring.; ; ; ; ; Unreviewed; Outcome: 19:46 Decision to Hospitalize by Provider. le 22:19 Discharge Assessment: Patient awake, alert and oriented x 3. No cognitive and/or js15 functional deficits noted. Patient verbalized understanding of disposition instructions. patient administered narcotics - no. The following High Risk Discharge criteria are identified: None. Admitted to PCU accompanied by nurse, accompanied by tech, family with patient, via stretcher, on monitor, with chart. Condition: unchanged. CT Study completed. MRI Study completed. Property :Personal belongings accompany Pt. 22:36 Patient left the ED. js15 Signatures: Dispatcher [employer] EDMS Iveth Pedroza, RN RN [facility] Francine To, Reg Reg gb Ernie, Dariana Perez, BUSINESS REPORTER BUSINESS REPORTER le Terrance Delvalle, SITE COORDINATOR SITE COORDINATOR dd6 Blanka Stock,MORENO RN rs3 Savanah Marcano,RN RN js15 Kun Stringer rn1 Corrections: (The following items were deleted from the chart) 17:31 17:30 C REACTIVE PROTEIN QUANTITATIV+LAB sent. [facility] VANE Chart Complete MTDD
--- NOTE | 2016-04-06 23:37 | EDDOCDS ---
Physician Documentation [facility] Name: Alisha Shahid Age: 86 yrs Sex: Female : 1930 Arrival Date: 04/04/2016 Time: 15:17 Bed 5 Private MD: Makayla Luna E Disposition: 04/04 19:46 Critical Care: Critical care not applicable. hortensia Disposition: 04/04/16 19:46 Hospitalization ordered by Hector Nelson for Observation. Preliminary diagnosis is Other transient cerebral ischemic attacks and related syndromes - possible, needs further evaluation. - Bed requested for PCU. - Status is Observation. js15 - Condition is Stable. - Problem is an ongoing problem. - Symptoms are unchanged. Historical: - Allergies: Amoxicillin (Rash); Cipro PO (Rash); PENICILLINS (Hives, Rash); Bees; - Home Meds: 1. aspirin 81 mg Oral tab 1 tab once daily 2. Calcium + Vitamin D 600 mg calcium- 200 unit Oral tab 2 tab daily 3. Miralax 17 gram/dose Oral powd once daily 4. fluticasone 50 mcg/actuation nasal spsn 2 sprays once daily 5. Lexapro 5 mg Oral tab 1 tab once daily 6. Doc-Q-Lace 100 mg oral cap 1 cap 2 times per day 7. melatonin 3 mg Oral tab nightly 8. gabapentin 100 mg Oral cap daily 9. Zyprexa 5 mg Oral tab 1 tab nightly 10. mirtazapine 15 mg Oral TbDL 1 tab once daily - PMHx: CHF; Diabetes - NIDDM: controlled; temporal arteritis; - PSHx: Hysterectomy; Cataract Surgery- Bilateral; - Social history: Smoking status: Patient states former smoker of tobacco. No barriers to communication noted, The patient speaks fluent Yoruba. - Family history: Not pertinent. - : The pt / caregiver states he / she is not on anticoagulants. Home medication list is obtained from the patient. - Exposure Risk Screening:: None identified. Vital Signs: 15:18 BP 95 / 54; Pulse 77; Resp 18 S; Temp 96.3; Pulse Ox 97% on R/A; Weight 58.97 kg / dd6 130.01 lbs (R); Height 5 ft. 0 in. (152.40 cm) (R); 16:00 Pulse 64 MON; Pulse Ox 95% ; srm 16:00 BP 118 / 58 (auto/); srm 16:10 BP 115 / 52 (auto/); srm 16:10 Pulse 58 MON; Resp 18; Pulse Ox 96% ; srm 16:40 Pulse 62 MON; Pulse Ox 93% ; srm 16:40 BP 131 / 62 (auto/); srm 17:10 Pulse 58 MON; Pulse Ox 96% ; srm 17:10 BP 162 / 70 (auto/); srm 17:53 BP 154 / 70 (auto/); srm 17:53 Pulse 62 MON; Resp 18; Pulse Ox 97% ; srm 18:40 BP 165 / 72 (auto/); js15 18:40 Pulse 50 MON; Pulse Ox 97% ; js15 19:06 Pulse 52 MON; Pulse Ox 96% ; js15 21:15 BP 130 / 65; Pulse 63; Resp 18; Temp 98.2; Pulse Ox 94% ; Pain 0/10; js15 15:18 Body Mass Index 25.39 (58.97 kg, 152.40 cm) dd6 MDM: 16:56 Sub Arc Operator/Pulse Ox/q 15 min VS ordered. le 16:56 Accucheck ordered. le 16:57 IV Saline Lock ordered. le 16:57 Oxygen at 4L/Min NC or Home dosage ordered. le 16:57 Rhythm Strip to chart ordered. le 16:57 -Blood Culture (Adults Only), peripheral from different site, or from device/port/PICC le etc. if present ordered. 16:58 CBC with Diff Ordered. EDMS 16:58 Cardiac Injury Profile Ordered. EDMS 16:58 Liver Profile Ordered. EDMS 16:58 MED Profile Ordered. EDMS 16:58 Thyroid Stimulating Hormone Ordered. EDMS 16:58 Troponin Ordered. EDMS 16:58 Urinalysis Ordered. EDMS 16:58 Urine Culture Ordered. EDMS 16:58 -Blood Culture Ordered. EDMS 16:58 CT Head Without Contrast Ordered. EDMS 16:58 ECG WITH READING ER PHYS+CARDIAG ordered. EDMS 16:59 Chest, 2 View (pa\E\lat) Ordered. EDMS 17:02 Financial registration complete. zo 17:04 [facility] [place] Payment Agreement was scanned into [employer] and attached to record. zo 17:18 -Blood Culture (Adults Only), peripheral from different site, or from device/port/PICC lbd etc. if present complete. 17:21 BLOOD CULTURES Ordered. EDMS 17:28 ESR Ordered. EDMS 17:30 C REACTIVE PROTEIN QUANTITATIV Ordered. EDMS 17:43 Fingerstick Blood Sugar Ordered. EDMS 18:22 CBC with Diff Reviewed. le 18:22 Liver Profile Reviewed. le 18:22 MED Profile Reviewed. le 18:22 Urinalysis Reviewed. le 18:22 C REACTIVE PROTEIN QUANTITATIV Reviewed. le 18:22 Fingerstick Blood Sugar Reviewed. le 18:22 Cardiac Injury Profile Reviewed. le 18:22 Thyroid Stimulating Hormone Reviewed. le 18:22 Troponin Reviewed. le 18:22 ESR Reviewed. le 18:22 CT Head Without Contrast Reviewed. le 18:29 MRI Screening Tool - Place on chart, inform RN ordered. le 18:42 MRI Screening Tool - Place on chart, inform RN complete. lbd 19:36 BED REQUEST+ADM ordered. EDMS 20:25 2 GRAM SODIUM DIET ordered. EDMS 20:25 COMPLETE BLOOD COUNT Ordered. EDMS 20:25 BASIC METABOLIC PROFILE Ordered. EDMS 20:51 Admission / Observation Status ordered. EDMS 20:58 Duplex,carotid (complete) Ordered. EDMS 20:59 ECHOCARD,DOPPLER/COLOR FLOW ordered. EDMS 20:59 CT Head without contrast Ordered. EDMS 04/05 12:47 T-Sheet-- Draft Copy was scanned into [employer] and attached to record. 12:48 ECG/EKG was scanned into [employer] and attached to record. Point of Care Testing: Blood Glucose: 04/04 17:31 Blood Glucose: 140 mg/dL; srm Ranges: Signatures: Dispatcher [employer] EDMS Shavon Machado, Yardage Estimator Unit lbd Iveth Pedroza RN RN srm Francine To, Reg Reg gb Marissa MelodyIsatuGeorgiana, Yardage Estimator Unit ml3 Katarzyna Klein Lisa, EXTRACTOR TENDER RAW STOCK EXTRACTOR TENDER RAW STOCK Blanka Carbone RN RN rs3 Savanah Marcano,RN RN js15 The chart was reviewed and I authenticate all verbal orders and agree with the evaluation and treatment provided.Corrections: (The following items were deleted from the chart) 17:31 17:28 C REACTIVE PROTEIN QUANTITATIV+LAB ordered. EDMS EDMS 19:28 18:30 MRA-Brain without contrast+MR ordered. EDMS EDMS 19:28 18:31 MRI-Brain without+MR ordered. EDMS EDMS Attachments: 17:04 [facility] [place] Payment Agreement zo 04/05 12:47 T-Sheet-- Draft Copy gb 12:48 ECG/EKG gb Chart Complete MTDD
[2016-04-07 00:38] VITALS: BP 137/65
[2016-04-07 05:27] VITALS: BP 122/60
[2016-04-07 05:33] LABS: MEAN CORPUSCULAR HEMOGLOBIN 32.1 pg (27.0-33.0); MEAN CORPUSCULAR HGB CONC 33.6 g/dl (32.0-36.5); MEAN CORPUSCULAR VOLUME 95.4 fl (80.0-96.0); RED CELL DISTRIBUTION WIDTH 13.5 % (11.5-14.5); WHITE BLOOD COUNT 4.7 K/mm3 (4.0-10.0)
[2016-04-07 06:18] LABS: ANION GAP 7 MEQ/L (8-16); BLOOD UREA NITROGEN 22 MG/DL (7-18); CARBON DIOXIDE LEVEL 29 MEQ/L (21-32); CHLORIDE LEVEL 110 MEQ/L (98-107); CREATININE FOR GFR 0.57 MG/DL (0.55-1.02); GLOMERULAR FILTRATION RATE > 60.0 (>32); GLUCOSE, FASTING 85 MG/DL (83-110); POTASSIUM SERUM 3.5 MEQ/L (3.5-5.1); SODIUM LEVEL 146 MEQ/L (136-145)
[2016-04-07] MEDS: HumaLOG INSULIN (NovoLOG) PER UNIT SC SCH ×4 (07:30→20:54)
[2016-04-07 08:00] VITALS: BP 122/60
[2016-04-07] MEDS: LORATADINE 10 MG TAB PO SCH (09:29)
[2016-04-07] MEDS: ESCITALOPRAM OXALATE 5MG TABLET (LEXAPRO) PO SCH (09:29)
[2016-04-07] MEDS: ASPIRIN 81 MG ENTERIC TAB PO SCH (09:29)
[2016-04-07] MEDS: FLUTICASONE PROP 0.05% NASAL SPRAY 16 GM (FLONASE) SCH (09:30)
[2016-04-07] MEDS: HEPARIN SOD (PORCINE) 5000 UNITS/ML VIAL SC SCH ×2 (09:30→20:54)
--- NOTE | 2016-04-07 11:21 | IPN ---
DATE: 04/07/2016 SUBJECTIVE: This is an 86-year-old female who was seen and examined at bedside. Overnight no reported acute events. She currently has open MRI pending for further evaluation for cause of her weakness. Denies any chest pain, shortness of breath, nausea, though she does fluctuate with her mentation, therefore, it is not absolutely reliable. OBJECTIVE: Vital signs: Blood pressure 122/60, heart rate 60, temperature 96.5 , respiration rate 18, pulse ox 94% on room air. Intake and output over the last 24 hours 960 and 350. She has incontinent voids and two bowel movements documented. Patient is lying in bed, flat angle, comfortable, no acute distress. She is alert, awake, oriented to person, place, although it is difficulty to understand her when she was trying to say her month, her day of . Chronically ill appearing but pleasant, cooperative. HEENT: Normocephalic, atraumatic. Right eye status post cataract. Left eye: Pupil equal and reactive to light. Very dry oral mucosa. Tongue midline. Neck: Supple, no jugular venous distention (JVD). Trachea midline. Chest: Symmetric chest rise. No accessory muscle use. Breath sounds were diminished but no crackles, rhonchi. Heart: Regular rate and rhythm, S1, S2. Normal. Somewhat distant. Could not appreciate any murmurs, rubs or gallop. Abdomen: Soft, nontender, nondistended. Bowel sounds present. No guarding. No rebound. Extremities: No pedal edema. Pedal pulses present bilaterally. Strength is 4/5 in all extremities. Had difficulty time assessing sensory as the patient at times was confused. LABORATORY DATA: WBC 4.7, hemoglobin 11.4, hematocrit 34, this is decreased compared to admission 30, platelets 258. Sodium 146, potassium 3.5, chloride 110, carbon dioxide 29, BUN 22, creatinine 0.57, glucose 85. Blood cultures negative after [address] of cervical spine without contrast on 04/05/2016 showed no acute fracture or prevertebral soft tissue swelling, significant cervical lordosis. Ultrasound of carotids showed 16-49% narrowing of left ICA, not increased compared to April 2014. Similarly on the right ICA. CT head on 04/05/2016 showed no acute intracranial pathology or hemorrhage. Moderate cerebral volume loss with chronic small vessel ischemic disease, stable appearance on right frontal convexity meningioma. Echocardiogram performed on 04/05/2016 showed mild left atrial dilatation, aortic valve sclerosis. IMPRESSION/PLAN: Ms. Shahid is an 86-year-old female with history of frontal meningioma, presented with weakness. 1. Weakness. Repeat CT scan was unrevealing for any acute changes. Currently there is concern for possible cord compression and an open MRI is pending at this time as the patient could not lie still due to her severe kyphosis. However, per family 's decision, if she does in fact have cord compression, they would not want to have surgical intervention. Will continue conservative management. Have ordered physical therapy (PT) and occupational therapy (OT) for further assistance. 2. History of temporal arteritis. Was previously on prednisone however was discontinued 3 months ago. 3. Diabetes, resolved. Off steroids. 4. Chronic back pain. Continue home dose gabapentin as needed. 5. Depression with decreased appetite. Continue home dose Lexapro 5 mg by mouth daily, Remeron 50 mg daily at bedtime, Zyprexa. 6. Diastolic heart failure. Currently appears to be compensated. No further intervention needed at this time. Continue to monitor. 7. Hypernatremia. Check urine osmolality and urine sodium. 8. Deep venous thrombosis (DVT) prophylaxis, Sequential compression devices (SCD), thromboembolic deterrent stockings (TEDS) and heparin. My preceptor for this patient encounter was Dr. Millie Rodriguez. The preceptor was physically present in the building during the encounter and was fully available. As needed, all aspects of the patient interview, examination, medical decision making process, and medical care plan development were reviewed and approved by the preceptor. The preceptor is aware and concurs with the plan as stated in the body of this note and will attest to such by his/her cosignature. MAGALI
[2016-04-07 12:00] VITALS: BP 126/60
--- NOTE | 2016-04-07 12:24 | REP ---
MRI THORACIC SPINE WITHOUT CONTRAST: HISTORY: Back pain. COMPARISON: CT 04/05/2016. A small central disc protrusion is present at the T7-8 level. There is minimal effacement of the thecal sac without spinal cord compression. The T7 neural foramina are patent. A disc bulge with associated osteophyte formation is present at the T10-11 level. There is minimal effacement of the thecal sac without spinal cord compression. The T10 neural foramina are patent. There is no other disc bulge or herniation. The remaining neural foramina are patent. The spinal cord is normal in signal intensity. There is no intradural extramedullary lesion. A hemangioma is present in the T7 vertebral body. Normal signal intensity is present in the remaining thoracic vertebral bodies. There are old compression fractures of the T7 and T10-12 vertebral bodies with minimal height loss. There is no subluxation. IMPRESSION: 1. Small disc protrusion at the T7-8 level with spinal cord compression. 2. Disc bulge with associated osteophyte formation at the T10-11 level without spinal cord compression. 3. Old compression fractures of the T7 and T10-12 vertebral bodies with minimal height loss. Signed by Padilla Barragan MD 04/07/2016 12:34 P
--- NOTE | 2016-04-07 12:29 | REP ---
MRI BRAIN WITHOUT CONTRAST: HISTORY: Edema. COMPARISON: MR 04/28/[address] 04/05/2016. Areas of increased signal intensity on T2-weighted images are present in the periventricular and subcortical white matter. This represents small vessel ischemic disease. There is no intraparenchymal hemorrhage, infarct or midline shift. The ventricular system and cortical sulci are dilated consistent with moderate volume loss. There is no extracerebral collection. A calcified meningioma is present overlying the right frontal lobe. The meningioma measures 2.6 cm in transverse by 1.6 cm in AP dimensions and is unchanged in size compared to previous studies. There is minimal mass effect in the adjacent right frontal lobe. The sinuses are clear. IMPRESSION: 1. Small vessel ischemic disease. 2. Moderate volume loss. 3. Right frontal lobe convexity meningioma, unchanged in size compared to previous studies. Signed by Padilla Barragan MD 04/07/2016 12:33 P
[2016-04-07] MEDS: ACETAMINOPHEN TAB 650MG DOSE (2X325MG) PO PRN ×2 (12:36→20:55)
--- NOTE | 2016-04-07 15:57 | REP ---
CT THORACIC SPINE WITHOUT CONTRAST: HISTORY: Cord compression. There is no acute fracture or subluxation. There are old compression fractures to the T7 and T10-12 vertebral bodies with minimal height loss. There is no definite disc bulge or herniation . A 5 mm calcification is present in the posterior aspect of the spinal canal at the T3 level. This likely represents calcification of the ligamenta flava. There is very minimal narrowing of the spinal canal. There is loss of height of several mid and lower thoracic intervertebral discs. Vacuum phenomenon is present at the T11-12 level. These findings are consistent with disc degeneration. Anterior osteophytes are present throughout the thoracic spine. There is increased kyphosis. Increased density is present in the left lower lobe consistent with atelectasis or infiltrate. Calcifications are present in the spleen. IMPRESSION: 1. There is no definite disc bulge or herniation. 2. There are old compression fractures of the T7 and T10-12 vertebral bodies with minimal height loss. There is increased kyphosis. Signed by Padilla Barragan MD 04/07/2016 04:00 P
[2016-04-07 17:20] VITALS: BP 106/57
--- NOTE | 2016-04-07 18:53 | REP ---
MR LUMBAR SPINE WITHOUT CONTRAST: HISTORY: Cord compression. Decreased signal intensity on T2 weighted images is present in the lumbar intervertebral discs. The discs are decreased in height. These findings are consistent with disc degeneration. There is no disc bulge or herniation at the L1-2 level. The L1 nerves exit the neural foramina without compression. A diffuse disc bulge is present at the L2-3 level. There is minimal compression of the thecal sac. There is hypertrophy of the posterior articulating facets. The L2 nerves exit the neural foramina without compression. A diffuse disc bulge is present at the L3-4 level. There is minimal compression of the thecal sac. There is hypertrophy of the ligamenta flava and posterior articulating facets. The L3 nerves exit the neural foramina without compression. A diffuse disc bulge is present at the L4-5 level. There is minimal compression of the thecal sac. There is hypertrophy of the ligamenta flava and posterior articulating facets. The L4 nerves exit the neural foramina without compression. A diffuse disc bulge is present at the L5-S1 level. There is minimal compression of the thecal sac. There is hypertrophy of the posterior articulating facets. There are 3 mm of grade 1 spondylolisthesis of L5 on S1. The L5 nerves exit the neural foramina without compression. The conus medullaris is normal in appearance terminating at the level of the L1-2 intervertebral discs. There are old compression fracture of the T11 through L5 vertebral bodies with minimal height loss. Increased signal intensity on T2 weighted images is present in the endplates of the T11 through L5 vertebral bodies. This represents degenerative change. IMPRESSION: 1. Diffuse disc bulges at the L2-3 through L4-5 levels with minimal thecal sac compression. 2. Diffuse disc bulge at the L5-S1 level with minimal thecal sac compression. There is grade 1 spondylolisthesis of L5 on S1. 3. Old T11-L5 compression fractures with minimal height loss. Signed by Padilla Barragan MD 04/07/2016 07:06 P
[2016-04-07] MEDS: MIRTAZAPINE 15 MG TAB PO SCH (20:54)
[2016-04-07] MEDS: OLANZapine 5 MG TAB PO SCH (20:54)
[2016-04-07] MEDS: SODIUM CHLORIDE NASAL 0.65% SPRAY BTL (OCEAN) SCH (20:54)
[2016-04-07 22:00] VITALS: BP 108/53
[2016-04-08 06:00] VITALS: BP 113/56
[2016-04-08 06:57] LABS: MEAN CORPUSCULAR HEMOGLOBIN 31.3 pg (27.0-33.0); MEAN CORPUSCULAR HGB CONC 33.4 g/dl (32.0-36.5); MEAN CORPUSCULAR VOLUME 93.8 fl (80.0-96.0); RED CELL DISTRIBUTION WIDTH 13.4 % (11.5-14.5); WHITE BLOOD COUNT 6.7 K/mm3 (4.0-10.0)
[2016-04-08 07:27] LABS: ANION GAP 8 MEQ/L (8-16); BLOOD UREA NITROGEN 21 MG/DL (7-18); CALCIUM LEVEL 9.3 MG/DL (8.8-10.2); CARBON DIOXIDE LEVEL 29 MEQ/L (21-32); CHLORIDE LEVEL 111 MEQ/L (98-107); CREATININE FOR GFR 0.58 MG/DL (0.55-1.02); GLOMERULAR FILTRATION RATE > 60.0 (>32); GLUCOSE, FASTING 84 MG/DL (83-110); POTASSIUM SERUM 3.7 MEQ/L (3.5-5.1); SODIUM LEVEL 148 MEQ/L (136-145)
[2016-04-08] MEDS: HumaLOG INSULIN (NovoLOG) PER UNIT SC SCH ×4 (07:30→20:37)
[2016-04-08] MEDS: ESCITALOPRAM OXALATE 5MG TABLET (LEXAPRO) PO SCH (10:57)
[2016-04-08] MEDS: HEPARIN SOD (PORCINE) 5000 UNITS/ML VIAL SC SCH ×2 (10:57→21:27)
[2016-04-08] MEDS: MIRALAX *UNIT DOSE* 17GM PACKET PO SCH (10:57)
[2016-04-08] MEDS: ASPIRIN 81 MG ENTERIC TAB PO SCH (10:58)
[2016-04-08] MEDS: FLUTICASONE PROP 0.05% NASAL SPRAY 16 GM (FLONASE) SCH (10:58)
[2016-04-08] MEDS: LORATADINE 10 MG TAB PO SCH (10:58)
[2016-04-08] MEDS: D5W 1,000 ML IV SCH ×2 (10:59→19:00)
[2016-04-08 11:23] LABS: OSMOLALITY URINE 901 MOSM/KG (500-800)
[2016-04-08] MEDS ORDERED: MOM 30ML SUSPENSION UDC PO PRN (11:45)
[2016-04-08 14:00] VITALS: BP 118/58
--- NOTE | 2016-04-08 14:28 | IPN ---
DATE: 04/08/2016 SUBJECTIVE: This is an 86-year-old female who was seen and examined at the bedside. Overnight, complained of abdominal pain and was given K-pad. Has not had a bowel movement in the last two days. Niece noticed that her urine output is diminished. This morning, still reports abdominal pain. No fevers, chills, nausea, vomiting, diarrhea. Wants to know if she can go home. The family has requested hospice evaluation. OBJECTIVE: VITAL SIGNS: Blood pressure 113/56, heart rate 70, respiration rate 19, pulse oximetry 94% on room air. Temperature 97.1. Intake and output in the last 24 hours 360 in and 0 output. GENERAL: The patient is lying in bed, approximately 40 degree angle, comfortable, no acute distress. She is alert, awake, oriented to person, place and time. Niece and son at bedside. Chronically ill-appearing but pleasant and cooperative. HEENT: Normocephalic, atraumatic. Right eye with cataract. Left eye pupil is equal, reactive to light. Dry oral mucosa. Tongue is midline. NECK: Supple. Trachea midline. No jugular venous distention (JVD). CHEST: Symmetric chest rise. No accessory muscle use. LUNGS: Breath sounds clear to auscultation bilaterally. HEART: Regular rate and rhythm. S1, S2 present but distant. Do not appreciate any murmurs, rubs or gallops. ABDOMEN: Soft, mildly tender to palpation. Suprapubic with no guarding. No rebound. No peritoneal sign. EXTREMITIES: No pedal edema. Pedal pulses present bilaterally. NEUROLOGIC: Strength is still weak in all extremities. Positive Babinski on the left side. Sensory is intact. LABORATORY DATA: WBC 6.7, hemoglobin 11.2, hematocrit 33.6, platelets 263. Sodium 148, potassium 3.7, chloride 111, carbon dioxide 29, BUN 21, creatinine 0.58, glucose 84, calcium 9.3. Blood cultures negative after 72 hours. IMAGING: MRI of the lumbar spine yesterday showed diffuse disc bulge at L2-3, L4-5 with minimal thecal sac compression, L5-S1 the same. Old T11 and L5 compression fractures. Brain MRI shows small ischemic disease, moderate volume loss, right frontal lobe convex hemangioma, unchanged. Thoracic MRI showed disc protrusion at T7-8 without spinal cord compression. The bottom of the report says with, but this was done in error, as this was verified with neuroradiologist, disc bulge formation at T10 through T11 without compression, old compression fracture at T7, T10, T12. Cervical spine shows cervical lordosis. No fracture or soft tissue swelling. IMPRESSION/PLAN: Ms. Shahid is an 86-year-old female with history of frontal hemangioma, temporal arteritis, who presented with weakness. 1. Weakness and confusion. Her confusion appears to be improving. CT and MRI findings did not show any evidence of cord compression. Reason for her weakness remains unclear. We will ask Dr. Coleman for further assistance regarding this. Due to concern that mirtazapine might be contributing to her confusion, we have discontinued this medication today. Will followup with physical therapy and occupational therapy recommendations. Physical therapy has evaluated the patient and the family has declined at this time as they wish to go home with hospice. 2. History of temporal arteritis. Previously on prednisone for 4 to 5 years. 3. Diabetes. 4. Chronic back pain. Continue gabapentin as needed. 5. Depression with decreased appetite. Continue Lexapro 5 mg by mouth daily, Zyprexa. Remeron has been discontinued due to reasons mentioned above. 6. Diastolic heart failure. Currently compensated. No further intervention at this time. 7. Hyponatremia. Urine osmolarity and urine sodium currently pending at this time. She appears to be dehydrated. Was started on dextrose D5W 100 mL. Reevaluate laboratories in the morning. 8. Deep vein thrombosis (DVT) prophylaxis. Sequential compression device (SCD) , TEDs, and heparin. DISPOSITION: Pending evaluation by Dr. Coleman. We hope to have her discharge planning within the next 24 to 48 hours. My preceptor for this patient encounter was Dr. Brandt. The preceptor was physically present in the building during the encounter and was fully available. As needed, all aspects of the patient interview, examination, medical decision making process, and medical care plan development were reviewed and approved by the preceptor. The preceptor is aware and concurs with the plan as stated in the body of this note and will attest to such by his/her cosignature. MAGALI
[2016-04-08] MEDS: OLANZapine 5 MG TAB PO SCH (21:27)
[2016-04-08] MEDS: SODIUM CHLORIDE NASAL 0.65% SPRAY BTL (OCEAN) SCH (21:27)
[2016-04-08 22:00] VITALS: BP 125/60
[2016-04-09] MEDS: D5W 1,000 ML IV SCH (04:52)
[2016-04-09 06:00] VITALS: BP 149/69
[2016-04-09 07:00] LABS: MEAN CORPUSCULAR HEMOGLOBIN 32.1 pg (27.0-33.0); MEAN CORPUSCULAR HGB CONC 34.2 g/dl (32.0-36.5); MEAN CORPUSCULAR VOLUME 93.8 fl (80.0-96.0); RED CELL DISTRIBUTION WIDTH 13.2 % (11.5-14.5)
[2016-04-09 07:10] LABS: ANION GAP 7 MEQ/L (8-16); BLOOD UREA NITROGEN 12 MG/DL (7-18); CALCIUM LEVEL 9.5 MG/DL (8.8-10.2); CARBON DIOXIDE LEVEL 31 MEQ/L (21-32); CHLORIDE LEVEL 108 MEQ/L (98-107); CREATININE FOR GFR 0.58 MG/DL (0.55-1.02); GLOMERULAR FILTRATION RATE > 60.0 (>32); GLUCOSE, FASTING 89 MG/DL (83-110); POTASSIUM SERUM 3.8 MEQ/L (3.5-5.1); SODIUM LEVEL 146 MEQ/L (136-145)
[2016-04-09] MEDS: HumaLOG INSULIN (NovoLOG) PER UNIT SC SCH (07:30)
[2016-04-09] MEDS: HEPARIN SOD (PORCINE) 5000 UNITS/ML VIAL SC SCH (08:46)
[2016-04-09] MEDS: FLUTICASONE PROP 0.05% NASAL SPRAY 16 GM (FLONASE) SCH (08:46)
[2016-04-09] MEDS: MIRALAX *UNIT DOSE* 17GM PACKET PO SCH (08:47)
[2016-04-09] MEDS: ESCITALOPRAM OXALATE 5MG TABLET (LEXAPRO) PO SCH (08:47)
[2016-04-09] MEDS: ASPIRIN 81 MG ENTERIC TAB PO SCH (08:47)
[2016-04-09] MEDS: LORATADINE 10 MG TAB PO SCH (08:47)
[2016-04-09] MEDS: ACETAMINOPHEN TAB 650MG DOSE (2X325MG) PO PRN (08:48)
--- NOTE | 2016-04-10 08:39 | DSES ---
DATE OF ADMISSION: 04/04/2016 DATE OF DISCHARGE: 04/09/2016 PRIMARY CARE PROVIDER: Dr. Makayla Luna PROCEDURES: None CONSULTS: Neurology, Dr. Johns COMPLICATIONS: None DISCHARGE DIAGNOSES: 1. Generalized weakness and lower extremity weakness. 2. Temporal arteritis. 3. Diabetes. 4. Chronic back pain. 5. Depression with decreased appetite. 6. Diastolic heart failure, compensated. 7. Hyponatremia. 8. Right frontal meningeoma. DIAGNOSTIC IMAGING: Lumbosacral MRI showed diffuse disc bulge at L2-3 and L4-5 with minimal thecal sac compression, diffuse disc bulge at L5-S1 with minimal thecal sac compression, grade I spondylolisthesis, old T11 and L5 fractures. Brain MRI showed small ischemic vessel disease, moderate volume loss, right frontal lobe meningeoma. Thoracic MRI showed small disc protrusion at T7-8 without spinal cord compression, disc bulge. Associated osteophyte at T10-[address] without spinal cord compression[address] CT of neck showed a significant cervical lordosis. BRIEF HOSPITAL COURSE: Ms. Shahid is an 86-year-old female who presented to the emergency department with complaint of progressive weakness and confusion. The episode had reportedly been going on for at least two months. Because of worsening confusion and weakness, her prednisone that was used for treatment of her temporal arteritis was discontinued because it was felt to be contributing to her symptoms. For complete history and physical please see dictation on admission. Because of her abnormal finding including positive Babinski, it was recommended that she have imaging to evaluate for possible cord compression which could contribute to her symptoms. However, imaging was unrevealing for any acute finding. Also, per discussion with family, even if the patient had any evidence of cord compression, they would not want to proceed with any surgical intervention due to her advanced age and frail condition. The case was also reviewed with neurosurgeon on-call who agreed with radiologic results. After negative imaging workup, it is believed that her symptoms were secondary to of progression of her chronic condition and also effect of mirtazapine. Therefore, this medication was discontinued. Throughout her stay, the patient wished to go home and be comfortable in her home environment. The family also expressed desire for hospice due to her progression of her condition. After family discussion with hospice care, the patient was amenable to be discharged home with home hospice on 04/09/2016. PHYSICAL EXAMINATION AT TIME OF DISCHARGE: VITAL SIGNS: Blood pressure 149/69. Heart rate 64. Temperature 97.7. Respiratory rate 16. Pulse oximetry 96% on room air. GENERAL: The patient was lying in bed comfortable in no acute distress. She is alert, awake, oriented to person and place. The family at the bedside. HEENT: Normocephalic, atraumatic. Moist oral mucosa. Extraocular movement on the left pupil, right eye with status post cataract. NECK: Supple. Trachea midline. CHEST: Symmetric chest rise. No accessory muscle use. Breath sounds were diminished, but clear bilaterally. HEART: Regular rate and rhythm. S1, S2 present. ABDOMEN: Soft. Nontender. Nondistended. Bowel sounds heard. No guarding. No rebound. EXTREMITIES: No pedal edema. Pedal pulses present bilaterally. LABORATORY DATA: WBC 5, hemoglobin 11.6, hematocrit 33.9, platelets 152. Sodium 126, potassium 3.8, chloride 108, carbon dioxide 31, BUN 12, creatinine 0.58, glucose 89. DISCHARGE CONDITION: Stable. ACTIVITY: As tolerated with assistance. DIET: Regular. DISCHARGE MEDICATIONS: - aspirin 81 mg by mouth daily - calcium one tablet by mouth daily - Colace 100 mg by mouth twice a day - Lexapro 5 mg by mouth daily - Flonase daily two sprays - gabapentin 100 mg by mouth at bedtime as needed - loratadine 10 mg by mouth daily - Medihoney Wound topical to sores - melatonin 3 mg by mouth daily - multivitamin daily - mupirocin 2% ointment topical as needed - olanzapine 5 mg by mouth nightly - MiraLAX 17 grams by mouth daily - nasal spray STOP THE FOLLOWING HOME MEDICATIONS: - gabapentin 100 mg by mouth at bedtime - mirtazapine DISPOSITION: Home with home hospice. CONDITION: Stable The patient can followup with her primary care provider as needed. TIME SPENT: 35 minutes. My preceptor for this patient encounter was Dr. Brandt. The preceptor was physically present in the building during the encounter and was fully available. As needed, all aspects of the patient interview, examination, medical decision making process, and medical care plan development were reviewed and approved by the preceptor. The preceptor is aware and concurs with the plan as stated in the body of this note and will attest to such by his/her cosignature. edited: 04/15/2016 [id number] tkf cc: Dr. Makayla DE LOS SANTOS
== END 2016-04-09 10:35 | disposition hospice, home (50) | DRG 91 ==
LOC: M ED 15:17 → M ED INP 20:49 → M PCU 22:40 → M MSPAV 04-07 17:18
PROVIDERS: ADMIT Internal Medicine; ATTEND Internal Medicine
DX: G72.0 Drug-induced myopathy (principal); G93.6 Cerebral edema; I50.32 Chronic diastolic (congestive) heart failure; E87.1 Hypo-osmolality and hyponatremia; K57.32 Diverticulitis of large intestine without perforation or abscess without bleeding; M31.6 Other giant cell arteritis; M54.5 Low back pain; F32.9 Major depressive disorder, single episode, unspecified; T38.0X5A Adverse effect of glucocorticoids and synthetic analogues, initial encounter; R13.10 Dysphagia, unspecified; Z79.899 Other long term (current) drug therapy; Z79.82 Long term (current) use of aspirin; Z87.891 Personal history of nicotine dependence; D32.0 Benign neoplasm of cerebral meninges; Z91.038 Other insect allergy status; Z88.0 Allergy status to penicillin